=== PATIENT | male | born 1975 | race Caucasian/White ===

== ENCOUNTER 2020-05-30 12:11 | Outpatient (REF) | payer MEDICARE, MEDICAID, SELFPAY ==
[2020-05-30 13:42] LABS: Alanine Aminotransferase 28 U/L (0-40); Albumin Level 4.3 g/dL (3.5-5.0); Alkaline Phosphatase 110 U/L (39-117); Anion Gap 11 (12-20); Aspartate Amino Transferase 23 U/L (5-37); Bilirubin Total 0.3 mg/dL (0.0-1.0); Blood Urea Nitrogen 15 mg/dL (9-16); Carbon Dioxide 25 mmol/L (22-29); Chloride 107 mmol/L (96-108); Estimated Glomerular Filt Rate > 60; Glucose Random 93 mg/dL (60-115); Potassium 4.3 mmol/l (3.3-5.1); Sodium 139 mmol/L (135-145); Total Protein 7.2 g/dL (6.5-8.0)
[2020-05-31 07:50] LABS: HIV AB/AG Nonreactive (Nonreactive); HIV Num 1 0.07 S/CO (0.00-0.99)
== END 2020-05-30 12:12 | disposition home or self-care (01) ==
LOC: HO.LAB 12:11
PROVIDERS: Visit Provider Family Medicine
DX: E78.1 Pure hyperglyceridemia (principal); F17.200 Nicotine dependence, unspecified, uncomplicated; I10 Essential (primary) hypertension
CPT/HCPCS: 80053; 87389

== ENCOUNTER 2023-04-12 16:12 | Outpatient (REF) | payer OTHER, SELFPAY ==
[2023-04-12 17:55] LABS: Alanine Aminotransferase 16 U/L (0-40); Albumin Level 4.4 g/dL (3.5-5.0); Alkaline Phosphatase 108 U/L (39-117); Anion Gap 12 (12-20); Aspartate Amino Transferase 19 U/L (5-37); Bilirubin Total 0.4 mg/dL (0.0-1.0); Blood Urea Nitrogen 12 mg/dL (9-16); Calcium 9.4 mg/dL (8.4-10.2); Carbon Dioxide 21 mmol/L (22-29); Chloride 108 mmol/L (96-108); Estimated Glomerular Filt Rate > 60; Glucose Random 87 mg/dL (60-115); Potassium 4.1 mmol/L (3.3-5.1); Sodium 137 mmol/L (135-145); Total Protein 7.3 g/dL (6.5-8.0)
== END 2023-04-12 16:13 | disposition home or self-care (01) ==
LOC: HO.HHCL 16:12
PROVIDERS: Visit Provider Family Medicine
DX: I10 Essential (primary) hypertension (principal); E78.1 Pure hyperglyceridemia
CPT/HCPCS: 36415; 80053

== ENCOUNTER 2023-05-06 11:15 | Outpatient (REF) | payer OTHER, SELFPAY ==
[2023-05-06 13:25] LABS: MANUAL DIFF FLAG NO
[2023-05-06 13:33] LABS: Basophils Percent Auto 0.3 % (0-2); Eosinophils Percent Auto 0.1 % (0-4); Hematocrit 45.1 % (42.0-52.0); Hemoglobin 14.7 g/dl (14.0-18.0); Imm Gran Abs Auto 0.05 X10*3/uL (0.00-0.03); Imm Gran Pct Auto 0.6 % (0.0-0.4); Lymphocytes Absolute Auto 1.6 X10*3/uL (1.2-4.9); Lymphocytes Percent Auto 18.9 % (20-40); Mean Corpuscular HGB Conc 32.6 g/dl (31.0-36.0); Mean Corpuscular Hemoglobin 30.1 pg (27.0-33.0); Mean Corpuscular Volume 92.4 fL (80.0-98.0); Mean Platelet Volume 10.5 fL (9.4-12.4); Monocytes Absolute Auto 0.7 X10*3/uL (0.1-1.2); Monocytes Percent Auto 8.1 % (2-11); Neutrophils Absolute Auto 6.2 x10*3/uL (2.0-8.3); Platelet Count 295 X10*3/uL (160-400); Red Blood Count 4.88 X10*6/uL (4.60-5.80); Red Cell Distribution Width 14.9 % (11.0-16.0); White Blood Count 8.7 X10*3/uL (4.8-10.8)
[2023-05-06 14:16] LABS: TSH reflex Free T4 0.71 uIU/mL (0.32-4.0)
[2023-05-06 14:27] LABS: Anion Gap 15 (12-20)
[2023-05-06 14:31] LABS: Alanine Aminotransferase 13 U/L (0-40); Albumin Level 4.9 g/dL (3.5-5.0); Alkaline Phosphatase 120 U/L (39-117); Aspartate Amino Transferase 21 U/L (5-37); Bilirubin Total 0.5 mg/dL (0.0-1.0); Blood Urea Nitrogen 19 mg/dL (9-16); Calcium 10.5 mg/dL (8.4-10.2); Carbon Dioxide 21 mmol/L (22-29); Chloride 106 mmol/L (96-108); Estimated Glomerular Filt Rate > 60; Glucose Random 124 mg/dL (60-115); Potassium 4.2 mmol/L (3.3-5.1); Sodium 138 mmol/L (135-145); Total Protein 8.4 g/dL (6.5-8.0)
[2023-05-06 14:35] LABS: Cholesterol 219 mg/dL (<200); HDL Cholesterol 40 mg/dL (>40); LDL Cholesterol Calculated 133 mg/dL (<100); Triglycerides 232 mg/dL (<150)
[2023-05-06 14:50] LABS: Reflex LDLD? No
== END 2023-05-06 11:16 | disposition home or self-care (01) ==
LOC: HO.HHCL 11:15
PROVIDERS: Visit Provider Family Medicine
DX: I10 Essential (primary) hypertension (principal); E78.1 Pure hyperglyceridemia; G89.4 Chronic pain syndrome; Z72.0 Tobacco use
CPT/HCPCS: 36415; 80053; 80061; 84443; 85025

== ENCOUNTER 2023-05-18 19:00 | Outpatient (REF) | payer OTHER, SELFPAY ==
--- NOTE | ~2023-05-18 | MR_ITS ---
EXAMINATION: MR BRAIN WITHOUT CONTRAST CLINICAL INFORMATION: Headaches. Paresthesias and numbness. COMPARISON: None. TECHNIQUE: Multiplanar, multisequence imaging of the brain was performed without contrast. FINDINGS: No diffusion abnormalities are identified to suggest an acute or subacute infarct. The ventricles are normal in size. No mass effect or midline shift is seen. No brain parenchymal signal abnormality is noted. No extra-axial fluid collections are seen. The brainstem and cerebellum are normal. The gradient refocused acquisition is normal. The craniovertebral junction, marrow signal, and midline structures are normal. The major intracranial flow voids at the level of the kl[place] of [place] are preserved. The dural venous sinus flow voids are maintained. The paranasal sinuses are well aerated. There is trace fluid in the mastoid air cells. MR/MR head/brain wo con IMPRESSION: No acute process. Normal MRI of the brain.
== END 2023-05-18 19:01 | disposition home or self-care (01) ==
LOC: HO.MRI 19:00
PROVIDERS: Visit Provider Family Medicine
DX: M54.50 Low back pain, unspecified (principal); G89.29 Other chronic pain
CPT/HCPCS: 70551

== ENCOUNTER 2023-11-11 11:44 | Outpatient (REF) | payer OTHER, SELFPAY ==
[2023-11-11 13:47] LABS: Estimated Average Glucose 111 mg/dL; Hemoglobin A1c % 5.5 % (<6.0)
[2023-11-11 14:35] LABS: Alanine Aminotransferase 16 U/L (0-40); Albumin Level 4.8 g/dL (3.5-5.0); Alkaline Phosphatase 126 U/L (39-117); Anion Gap 12 (12-20); Aspartate Amino Transferase 25 U/L (5-37); Bilirubin Total 0.3 mg/dL (0.0-1.0); Blood Urea Nitrogen 17 mg/dL (9-16); Calcium 10.3 mg/dL (8.4-10.2); Carbon Dioxide 28 mmol/L (22-29); Chloride 105 mmol/L (96-108); Cholesterol 269 mg/dL (<200); Estimated Glomerular Filt Rate > 60; Glucose Random 92 mg/dL (60-115); HDL Cholesterol 46 mg/dL (>40); Potassium 4.7 mmol/L (3.3-5.1); Sodium 140 mmol/L (135-145); TSH reflex Free T4 1.31 uIU/mL (0.32-4.0); Total Protein 8.2 g/dL (6.5-8.0); Triglycerides 458 mg/dL (<150)
[2023-11-11 15:30] LABS: Reflex LDLD? Yes
[2023-11-12 07:53] LABS: LDL Cholesterol Direct 139 mg/dL (<100)
== END 2023-11-11 11:45 | disposition home or self-care (01) ==
LOC: HO.HHCL 11:44
PROVIDERS: Visit Provider Family Medicine
DX: E78.1 Pure hyperglyceridemia (principal); I10 Essential (primary) hypertension
CPT/HCPCS: 36415; 80053; 80061; 83036; 83721; 84443

== ENCOUNTER 2024-09-21 13:15 | Outpatient (REF) | payer OTHER, SELFPAY ==
[2024-09-21 15:16] LABS: Erythrocyte Sedimentation Rate 11 MM/HR (0-15)
--- OUTSIDE RECORDS SUMMARY | 2024-09-21 16:05 | XMS_ITS | Encounter Summary ---
Author Organization [employer] [facility] Address [address] [facility] 7t [place] [address] Care Team Providers Care Soliciting Freight Agent Name Role Phone Araceli De La Rosa MD Primary Care Provider [phone] Reason for Visit * Reason Onset Date Comments Med Refill 09/14/2022 Encounter Details Date Type Department Care Team (Late st Contact Info) Description 09/14/2022 Telephone [facility] [address] [place], [place] [phone] Araceli De La Rosa MD 230 [place], [place] [phone] Med Refill Social History Tobacco Use Types Packs/Day Years Used Date Smoking Tobacco: Every Day Cigarettes Passive Smoke Exposure: Never Smokeless Tobacco: Never Depression Answer Date Recorded Patient Health Questionnaire-9 Score 7 07/06/2022 Depression Answer Date Recorded Patient Health Questionnaire-2 Score 3 07/06/2022 Sex and Gender Information Value Date Recorded Sex Assigned at Male 05/18/2022 10:15 AM EDT Legal Sex Male 10:15 AM EDT Gender Identity Male 05/18/2022 10:15 AM EDT Sexual Orientation Straight 05/18/2022 10 :15 AM EDT documented as of this encounter Miscellaneous Notes * Telephone Encounter - Harpreet Haley - 09/14/2022 3:46 PM EST Tc from pt requesting med refill Oxycodone 5 mg documented in this encounter Plan of Treatment Upcoming Encounters Date Type Department Care Team (Late st Contact Info) Description 10/18/2024 11:00 AM EDT Clinical Support [facility] 505 [place] [address], RN 505 [place] [address] 11/13/2024 9:30 AM EDT Office Visit [facility] 230 [place] [address] Araceli De La Rosa MD 230 [place] [address] documented as of this encounter Visit Diagnoses Not on filedocumented in this encounter Additional Health Concerns Assessment Noted Time PHQ-9 Depression Total Score: 7 07/06/20 22 11:15 AM EST documented as of this encounter Care Teams Soliciting Freight Agent Relationship Specialty Start Date End Date Araceli De La Rosa MD [address] [place] [address] PCP - General Family Medicine 02/06/14 documented as of this encounter
--- OUTSIDE RECORDS SUMMARY | 2024-09-21 16:05 | XMS_ITS | Encounter Summary ---
Author Organization [employer] Address [address] [facility] 7t [place] [address] Care Team Providers Care Loom Setter Name Role Phone Araceli De La Rosa MD Primary Care Provider [phone] Encounter Details Date Type Department Care Team ([facility] st Contact Info) Description 05/03/2023 Orders Only [facility] 230 [place], [place] [phone] Araceli De La Rosa MD 230 [place], [place] [phone] Chronic bilateral low back pain without sciatica (Primary Dx); Chronic pain of both knees Social History Tobacco Use Types Packs/Day Years Used Date Smoking Tobacco: Every Day Cigarettes Passive Smoke Exposure: Never Smokeless Tobacco: Never Depression Answer Date Recorded Patient Health Questionnaire-9 Score 7 07/06/2022 Housing Stability Answer Date Recorded What is your housing situation today? I have kellenzuly duong 05/03/[address] you li ve. Do you have problems with any of the following? None of the above 05/03/2023 Food Insecurity Answer Date Recorded Within the past 12 months, y ou worried that your food would run out before you got money to buy more: Never True 05/03/2023 Within the past 12 months,th e food you bought just didn't last and you didn't have enough money to get more: Never True Transportation Answer Date Recorded In the past 12 months, has l ack of transportation kept you from medical appts, meetings, work or from getting things needed for daily living? No 05/03/2023 Utilities Answer Date Recorded In the past 12 months, has t he electric, gas, oil or water [employer] threatened to shut off services in your home? No 05/03/2023 Depression Answer Date Recorded Patient Health Questionnaire-2 Score 3 07/06/2022 Sex and Gender Information Value Date Recorded Sex Assigned at Male 05/18/2022 10:15 AM EDT Legal Sex Male 10:15 AM EDT Gender Identity Male 05/18/2022 10:15 AM EDT Sexual Orientation Straight 05/18/2022 10 :15 AM EDT documented as of this encounter Plan of Treatment Upcoming Encounters Date Type Department Care Team (Late st Contact Info) Description 10/18/2024 11:00 AM EDT Clinical Support [facility] 505 [place] [address], ILIA 505 [place] [address] 11/13/2024 9:30 AM EDT Office Visit [facility] 230 [place] [address] Araceli De La Rosa MD 230 [place] [address] documented as of this encounter Visit Diagnoses Diagnosis Chronic bilateral low back pain without sciatica- Primary Chronic pain of both knees documented in this encounter Additional Health Concerns Assessment Noted Time PHQ-9 Depression Total Score: 7 07/06/20 22 11:15 AM EST documented as of this encounter Care Teams Loom Setter Relationship Specialty Start Date End Date Araceli De La Rosa MD [address] [place] [address] PCP - General Family Medicine 02/06/14 documented as of this encounter
--- OUTSIDE RECORDS SUMMARY | 2024-09-21 16:06 | XMS_ITS | Encounter Summary ---
Author Organization [employer] Address [address] [facility] 7t [place] [address] Care Team Providers Care Blocker Metal Base Name Role Phone Araceli De La Rosa MD Primary Care Provider Reason for Visit * Reason Onset Date Comments Results 08/11/2023 Encounter Details Date Type Department Care Team ([facility] st Contact Info) Description 08/11/2023 Telephone [facility] 230 [place], [place] [phone] Araceli De La Rosa MD 230 [place], [place] [phone] Results Social History Tobacco Use Types Packs/Day Years Used Date Smoking Tobacco: Every Day Cigarettes Passive Smoke Exposure: Never Smokeless Tobacco: Never Depression Answer Date Recorded Patient Health Questionnaire-9 Score 7 07/06/2022 Housing Stability Answer Date Recorded What is your housing situation today? I have kellen duong 05/03/[address] you [...] t he electric, gas, oil or water [employer] threatened to shut off services in your [...] encounter Miscellaneous Notes * Telephone Encounter - Bowen Perez - 08/11/2023 10:22 AM EST TC from pt requesting call back regarding Results. Type of results: Lab Work & MRI Date when done: Lab 05/06, MRI 05/18 Facility: [facility] documented in this encounter Plan of Treatment Upcoming Encounters Date Type Department Care Team (Late st Contact Info) Description 10/18/2024 11:00 AM EDT Clinical Support [facility] 505 [place] [address], RN 505 [place] [address] 11/13/2024 9:30 AM EDT Office Visit [facility] 230 [place] [address] Araceli De La Rosa MD [address] [place] [address] documented as of this encounter Visit Diagnoses Not on filedocumented in this encounter Additional Health Concerns Assessment Noted Time PHQ-9 Depression Total Score: 7 07/06/20 22 11:15 AM EST documented as of this encounter Care Teams Blocker Metal Base Relationship Specialty Start Date End Date Araceli De La Rosa MD [address] [place] [address] PCP - General Family Medicine 02/06/14 documented as of this encounter
--- OUTSIDE RECORDS SUMMARY | 2024-09-21 16:06 | XMS_ITS | Encounter Summary ---
Author Organization [employer] Address [address] [facility] 7t [place] [address] Care Team Providers Care Sales And Service Specialist Name Role Phone Araceli De La Rosa MD Primary Care Provider [phone] Reason for Visit * Reason Comments Med Refill Encounter Details Date Type Department Care Team ([facility] st Contact Info) Description 06/08/[address] [facility] 230 [place], [place] [phone] Araceli De La Rosa MD 230 [place], [place] [phone] Muscle spasm Social History Tobacco Use Types Packs/Day Years Used Date Smoking Tobacco: Every Day Cigarettes Passive Smoke Exposure: Never Smokeless Tobacco: Never Depression Answer Date Recorded Patient Health Questionnaire-9 Score 10 11/11/2023 Patient Health Questionnaire-9 Score 10 11/11/2023 Last PHQ-9: Questionnaire Data Not on file 0 11/11/2023 Housing Stability Answer Date Recorded What is your housing situation today? I have kellen duong 11/11/[address] you li ve. Do you have problems with any of the following? None of the above 11/11/2023 Food Insecurity Answer Date Recorded Within the past 12 months, y ou worried that your food would run out before you got money to buy more: Never True 11/11/2023 Within the past 12 months,th e food you bought just didn't last and you didn't have enough money to get more: Never True Transportation Answer Date Recorded In the past 12 months, has l ack of transportation kept you from medical appts, meetings, work or from getting things needed for daily living? No 11/11/2023 Utilities Answer Date Recorded In the past 12 months, has t he electric, gas, oil or water company threatened to shut off services in your home? No 11/11/2023 Depression Answer Date Recorded Patient Health Questionnaire-2 Score 4 11/11/2023 Sex and Gender Information Value Date Recorded Sex Assigned at Male 05/18/2022 10:15 AM EDT Legal Sex Male 10:15 AM EDT Gender Identity Male 05/18/2022 10:15 AM EDT Sexual Orientation Straight 05/18/2022 10 :15 AM EDT documented as of this encounter Plan of Treatment Upcoming Encounters Date Type Department Care Team (Late st Contact Info) Description 10/18/2024 11:00 AM EDT Clinical Support [facility] MED & PEDS 505 [place] [address], RN 505 [place] [address] 11/13/2024 9:30 AM EDT Office Visit [facility] 230 [place] [address] Araceli De La Rosa MD 230 [place] [address] documented as of this encounter Visit Diagnoses Diagnosis Muscle spasm Spasm of muscle documented in this encounter Additional Health Concerns Assessment Noted Time PHQ-9 Depression Total Score: 10 024 10:31 AM EDT documented as of this encounter Care Teams Sales And Service Specialist Relationship Specialty Start Date End Date Araceli De La Rosa MD 230 [place] [address] PCP - General Family Medicine 02/06/14 documented as of this encounter
--- OUTSIDE RECORDS SUMMARY | 2024-09-21 16:06 | XMS_ITS ---
Author Organization [facility] Address [address] [place] [phone] Care Team Providers Care Commercial Underwriter Name Role Phone Estrella CULLEN, Araceli Primary Care Provider Rom Kim [phone] REASON FOR VISIT Patient presents today for a COLON SCREENING Encounters Encounter Location Date Provider Diagnosis [facility] [address] [place] [phone] 01/11/2024 Rom Rader Plan Of Treatment No Information Progress Notes * DOYLE RODASDOB:1975 ([age] yo M)Acc No.[id number]:01/11/2024 Progress Notes Patient:?DOYLE RODAS Provider:?Rom Rader MD :1975???Age:48 Y???Sex:Male Michael e:01/11/2024 Address:[address] [place], [place] [id number] Pcp:Araceli De La Rosa MD Subjective: * Chief Complaints: * ???1. Patient presents today for a COLON SCREENING. * Medical History:? Objective: * Vitals:? Assessment: Plan: * Treatment: * * The named appointment provid er may or may not be the originator of this progress note, and it is not deemed complete until electronically signed by the appointment provider. Sign off status: Pending * Provider:?Rom Rader MD Date:? 024 Generated for Jaime rowell/Violeta/Kristophersmitting on:?09/21/2024 04:05 PM EST
--- OUTSIDE RECORDS SUMMARY | 2024-09-21 16:06 | XMS_ITS | Encounter Summary ---
Author Organization [employer] Address [address] [facility] 7t [place] [address] Care Team Providers Care Peeled Potato Inspector Name Role Phone Araceli De La Rosa MD Primary Care Provider [phone] Reason for Visit * Reason Onset Date Comments Med Refill 09/15/2024 Encounter Details Date Type Department Care Team ([facility] st Contact Info) Description 09/15/2024 Refill [facility]S 505 [place], [place] [phone] [address], RN 505 [place] [address] Chronic bilateral low back pain without sciatica (Primary Dx); Chronic pain syndrome; Chronic foot pain, unspecified laterality Social History Tobacco Use Types Packs/Day Years Used Date Smoking Tobacco: Every Day Cigarettes Passive Smoke Exposure: Never Smokeless Tobacco: Never Alcohol Use Standard Drinks/Week Comments Never 0 (1 standard drink = 0.6 oz pur e alcohol) Depression Answer Date Recorded Patient Health Questionnaire-9 Score 14 08/10/2024 Patient Health Questionnaire-9 Score 14 08/10/2024 Last PHQ-9: Questionnaire Data Not on file 0 08/10/2024 Housing Stability Answer Date Recorded What is your housing situation today? I have kellen ad 11/11/[address] you li [...] Answer Date Recorded Patient Health Questionnaire-2 Score 6 08/10/2024 Sex and Gender Information Value Date Recorded Sex Assigned at Male 05/18/2022 10:15 AM EDT Legal Sex Male 10:15 AM EDT Gender Identity Male 05/18/2022 10:15 AM EDT Sexual Orientation Straight 05/18/2022 10 :15 AM EDT documented as of this encounter Plan of Treatment Upcoming Encounters Date Type Department Care Team (Late st Contact Info) Description 10/18/2024 11:00 AM EDT Clinical Support [facility] 505 [place] [address], RN 505 [place] [address] 11/13/2024 9:30 AM EDT Office Visit [facility] [address] [place] [address] Araceli De La Rosa MD [address] [place] [address] documented as of this encounter Visit Diagnoses Diagnosis Chronic bilateral low back pain without sciatica- Primary Chronic pain syndrome Chronic foot pain, unspecified laterality documented in this encounter Additional Health Concerns Assessment Noted Time PHQ-9 Depression Total Score: 14 025 2:09 PM EST documented as of this encounter Care Teams Peeled Potato Inspector Relationship Specialty Start Date End Date Araceli De La Rosa MD [address] [place] [address] PCP - General Family Medicine 02/06/14 documented as of this encounter
--- OUTSIDE RECORDS SUMMARY | 2024-09-21 16:06 | XMS_ITS | Encounter Summary ---
Author Organization [employer] Address [address] [facility] 7t [place] [address] Care Team Providers Care Bilingual Loan Processor Name Role Phone Araceli De La Rosa MD Primary Care Provider Reason for Visit * Reason Onset Date Comments Med Refill 09/15/2024 Encounter Details Date Type Department Care Team ([facility] st Contact Info) Description 09/15/2024 Refill [facility] 230 [place], [place] [phone] Araceli De La Rosa MD 230 [place], [place] [phone] Insomnia, unspecified type Social History Tobacco Use Types Packs/Day Years [...] encounter Miscellaneous Notes * Telephone Encounter - Gayathri Keith LPN - 09/15/2024 1:46 PM EST ACCOUNTS PAYABLE PROFESSIONAL checked on 09/15/24. Next appointment 11/13/24. * Telephone Encounter - Ortiz Gao - 09/15/2024 1:42 PM EST TC from pt requesting medication refill. Medications needing refill : zolpidem (Ambien) 5 MG tablet To be sent to: [id number] - [place], [place] - [address] [place] [address] AT [facility] documented in this encounter Plan of Treatment Upcoming Encounters Date Type Department Care Team (Late st Contact Info) Description 10/18/2024 11:00 AM EDT Clinical Support [facility] 505 [place] [address] RN 505 [place] [address] 11/13/2024 9:30 AM EDT Office Visit [facility] 230 [place] [address] Araceli De La Rosa MD 230 [place] [address] documented as of this encounter Visit Diagnoses Diagnosis Insomnia, unspecified type documented in this encounter Additional Health Concerns Assessment Noted Time PHQ-9 Depression Total Score: 14 025 2:09 PM EST documented as of this encounter Care Teams Bilingual Loan Processor Relationship Specialty Start Date End Date Araceli De La Rosa MD 230 [place] [address] PCP - General Family Medicine 02/06/14 documented as of this encounter
--- OUTSIDE RECORDS SUMMARY | 2024-09-21 16:06 | XMS_ITS | Encounter Summary ---
Author Organization [employer] Address [address] [facility] 7t [place] [address] Care Team Providers Care Hat Forming Machine Operator Name Role Phone Araceli De La Rosa MD Primary Care Provider [phone] Encounter Details Date Type Department Care Team (Latest Contact Info) Description 09/10/2024 Travel Social History Tobacco Use Types Packs/Day Years [...] Description 10/18/2024 11:00 AM EDT Clinical Support [facility] 505 [place] [address], RN 505 [place] [address] 11/13/2024 9:30 AM EDT Office Visit [facility] 230 [place] [address] Araceli De La Rosa MD 230 [place] [address] documented as of this encounter Visit Diagnoses Not on filedocumented in this encounter Additional Health Concerns Assessment Noted Time PHQ-9 Depression Total Score: 14 025 2:09 PM EST documented as of this encounter Care Teams Hat Forming Machine Operator Relationship Specialty Start Date End Date Araceli De La Rosa MD [address] [place] [address] PCP - General Family Medicine 02/06/14 documented as of this encounter
--- OUTSIDE RECORDS SUMMARY | 2024-09-21 16:06 | XMS_ITS | Encounter Summary ---
Author Organization [employer] Address [address] [facility] 7t [place] [address] Care Team Providers Care Button Attaching Machine Operator Name Role Phone Araceli De La Rosa MD Primary Care Provider [phone] Reason for Visit * Reason Onset Date Comments Referral 09/12/2024 Encounter Details Date Type Department Care Team ([facility] st Contact Info) Description 09/12/2024 Telephone [facility] 230 [place], [place] [phone] Araceli De La Rosa MD 230 [place], [place] [phone] Referral Social History Tobacco Use Types Packs/Day Years [...] encounter Miscellaneous Notes * Telephone Encounter - Araceli De La Rosa MD - 09/18/2024 6:15 PM EST Referral sent * Telephone Encounter - Alexandrea Faith RN - 09/15/2024 9:43 AM EST Called Hina, pt's daycare teacher. She stated that the pt does not remember previous chiropractorname but that new referral made does not take [facility]. She states that she did some research for the ptand he is asking for referral to below location which does take [facility]. [facility] [address] [place] [address] [address] [place] [address] Advised will send message to PCP to update referral. Hina verbalized understanding. * Telephone Encounter - Alexandrea Faith RN - 09/13/2024 9:32 AM EST Per provider request, called pt's daycare teacher Hina. Left voicemail asking for callback. * Telephone Encounter - Alexandrea Faith RN - 09/12/2024 3:43 PM EST Nurses received message from pt's Group Tester Hina below asking about new chiropractor referral. Will message PCP regarding referral request. -- Greetings, I am Hina Quick, Blintze Roller for [facility] [employer], and would like to submit a request for a referral on behalf of the patient. Reason: Referral to a chiropractor to treat member's existing severe back pain. Gerard reports he wasreferred to a provider in [place] previously and did not like the way he was treated. Gerard would like a referral to a different provider If you should have any inquiries regarding this request, feel free to contact the Blintze Roller below. Blintze Roller: Hina Quick E-mail: [email or web address] Dish Cloth Inspector: Gillian Cervantes E-mail: [email or web address] Thanks in advance for your assistance with this request. Sincerely, [facility] [employer] documented in this encounter Plan of Treatment Upcoming Encounters Date Type Department Care Team (Late st Contact Info) Description 10/18/2024 11:00 AM EDT Clinical Support [facility] 505 [place] [address], [place] 505 [place] [address] 11/13/2024 9:30 AM EDT Office Visit [facility] 230 [place] [address] Araceli De La Rosa MD 230 [place] [address] documented as of this encounter Visit Diagnoses Not on filedocumented in this encounter Additional Health Concerns Assessment Noted Time PHQ-9 Depression Total Score: 14 025 2:09 PM EST documented as of this encounter Care Teams Button Attaching Machine Operator Relationship Specialty Start Date End Date Araceli De La Rosa MD [address] [place] [address] PCP - General Family Medicine 02/06/14 documented as of this encounter
--- OUTSIDE RECORDS SUMMARY | 2024-09-21 16:06 | XMS_ITS | Encounter Summary ---
Author Organization [employer] Address [address] [facility] 7t [place] [address] Care Team Providers Care Supervisor Water Treatment Plant Name Role Phone Araceli De La Rosa MD Primary Care Provider [phone] Reason for Visit * Reason Onset Date Comments Med Refill 09/15/2024 Encounter Details Date Type Department Care Team ([facility] st Contact Info) Description 09/15/2024 Telephone [facility] 230 [place], [place] [phone] Araceli De La Rosa MD 230 [place], [place] [phone] Med Refill Social History Tobacco Use Types [...] encounter Miscellaneous Notes * Telephone Encounter - Ortiz Murray - 09/15/2024 1:42 PM EST TC from pt requesting medication refill. Medications needing refill : oxyCODONE-acetaminophen (Percocet) 5-325 MG tablet To be sent to: [id number] - [place], [place] - [address] [facility] AT [facility] documented in this encounter Plan of Treatment Upcoming Encounters Date Type Department Care Team (Late st Contact Info) Description 10/18/2024 11:00 AM EDT Clinical Support [facility] 505 [place] [address], [place] 505 [place] [address] 11/13/2024 9:30 AM EDT Office Visit [facility] 230 [place] [address] Araceli De La Rosa MD 230 [place] [address] documented as of this encounter Visit Diagnoses Not on filedocumented in this encounter Additional Health Concerns Assessment Noted Time PHQ-9 Depression Total Score: 14 025 2:09 PM EST documented as of this encounter Care Teams Supervisor Water Treatment Plant Relationship Specialty Start Date End Date Araceli De La Rosa MD 230 [place] [address] PCP - General Family Medicine 02/06/14 documented as of this encounter
--- OUTSIDE RECORDS SUMMARY | 2024-09-21 16:06 | XMS_ITS | Patient Health Record ---
Author Organization [facility] Address [address] [place] [id number] Care Team Providers Care Management Trainee Program Stores Name Role Phone Estrella CULLEN, Araceli Primary Care Provider Rom Kim [phone] Reason For Referral No Information Encounters Encounter Location Date Provider Diagnosis [facility] [address] [place] [id number] 01/11/2024 Rom Rader Plan Of Treatment No Information Insurance Providers Payer Name Payer Address Payer Phone Subscriber Number Group Number Insured Name Patient Relationship to Insured Coverage Start Date Coverage End Date [facility] [address] [place] [address] [id number] DOYLE RODAS Self - patient is the insured
--- OUTSIDE RECORDS SUMMARY | 2024-09-21 16:06 | XMS_ITS | Encounter Summary ---
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 Medications needing refill : oxyCODONE-acetaminophen (Percocet) 5-325 MG tablet To be sent to: [id number] - [place], [place] - [address] [place] [address] AT [facility] documented in this encounter Plan of Treatment Upcoming Encounters Date Type Department Care Team (Late st Contact Info) Description 10/18/2024 11:00 AM EDT Clinical Support [facility] MED & PEDS [address] [place] [address], RN [address] [place] [address] 11/13/2024 9:30 AM EDT Office Visit [facility] MEDICINE [address] [place] [address] Araceli De La Rosa MD [address] [place] [phone] documented as of this encounter Visit Diagnoses Not on filedocumented in this encounter Additional Health Concerns Assessment Noted Time PHQ-9 Depression Total Score: 10 024 10:31 AM EDT documented as of this encounter Care Teams Fleshing Machine Operator Relationship Specialty Start Date End Date Araceli De La Rosa MD [address] [place] [address] PCP - General Family Medicine 02/06/14 documented as of this encounter
--- OUTSIDE RECORDS SUMMARY | 2024-09-21 16:06 | XMS_ITS | Clinical Summary ---
Author Organization [facility] Address [address] [facility] [address] [place] [address] Care Team Providers Care Rotary Engine Assembler Name Role Phone Araceli De La Rosa MD Primary Care Provider [phone] Allergies Active Allergy Reactions Criticality Noted Date Comments Morphine Anaphylaxis High 06/26/2013 Medications * This document contains information received from the source organization and may not represent a complete record from that organization. naloxone (Narcan) 4 mg/0.1 mL nasal spray Administer 0.1 mL into affected nostril(s). 04/30/20 22 Active Blood Pressure Monitor kit Check blood pressure once daily and as needed 1 kit 04/12/20 23 Active escitalopram (Lexapro) 5 MG tablet Take 1 tablet (5 mg) by mouth Once per day. 90 tablet 3 11/11/19 24 Active lisinopril 5 MG tabletIndicatio ns:Primary hypertension TAKE 1 TABLET(5 MG) BY MOUTH IN THE MORNING 90 tablet 3 11/11/19 24 Active atorvastatin (Lipitor) 20 MG tabletIndicatio ns:Hypertriglyc eridemia TAKE 1 TABLET(20 MG) BY MOUTH IN THE MORNING 90 tablet 3 11/11/19 24 Active hydrOXYzine pamoate (Vistaril) 25 MG capsule TAKE 1 CAPSULE(25 MG) BY MOUTH EVERY 8 HOURS NEEDED FOR ANXIETY 90 capsule 01/12/20 24 Active tiZANidine (Zanaflex) 4 MG tabletIndicatio ns:Muscle spasm TAKE 1 TABLET BY MOUTH THREE TIMES DAILY NEEDED FOR MUSCLE SPASM. NOT TO EXCEED 3 DOSES IN 24 HOURS 60 tablet 1 08/08/19 25 Active zolpidem (Ambien) 5 MG tabletIndicatio ns:Insomnia, unspecified type TAKE 1 TABLET BY MOUTH AT BEDTIME NEEDED FOR SLEEP 14 tablet 09/17/19 25 Active oxyCODONE-aceta minophen (Percocet) 5-325 MG tabletIndicatio ns:Chronic bilateral low back pain without sciatica,Chroni c pain syndrome,Chroni c foot pain, unspecified laterality Take 1 tablet by mouth every 12 (twelve) hours if needed for severe pain for up to 28 days. 56 tablet 09/17/19 25 025 Active zolpidem (Ambien) 5 MG tabletIndicatio ns:Insomnia, unspecified type TAKE 1 TABLET BY MOUTH AT BEDTIME NEEDED FOR SLEEP 14 tablet 08/04/19 25 025 Discontinued(R eorder (will not trigger notification to Pharmacy)) oxyCODONE-aceta minophen (Percocet) 5-325 MG tabletIndicatio ns:Chronic pain of both knees,Chronic pain syndrome,Chroni c bilateral low back pain without sciatica Take 1 tablet by mouth every 12 (twelve) hours if needed for severe pain for up to 28 days. 56 tablet 08/04/19 25 025 Active Problems Problem Noted Date Diagnosed Date Long-term current use of opiate analgesic 2024 Chronic headache 07/21/2024 Assessment & Plan (07/21/2024 5:34 PM EST): - multifactorial (JOSHUA, sinus disease, chronic pain syndrome) - normal MRI in Apr 2023 - optimize treatment for other chronic disease - work on smoking cessation - improve sleep - consider judicious use of THC / CBD - refer to neurology Chronic foot pain 06/01/2024 Assessment & Plan (07/21/2024 5:36 PM EST): - patient requests a script for DME, which was advised by patient's [facility] sub acute care nurse or coordinator - will write a script as requested, [employer] [place] [employer] Shoes, Size 8 Plantar fasciitis 06/01/2024 Assessment & Plan (07/17/2024 1:55 PM EST): - Pt is seeking insurance approval for shoes that help to alleviate some of his foot pain. - Refer him to a specialist for plantar fasciitis as previous visits were reported to be unsatisfactory. Depression, unspecified 11/08/2023 Anisocoria 04/19/2023 Assessment & Plan (07/21/2024 5:38 PM EST): - pt reports Hx head trauma - given his paresthesia and hyperalgesia. - MRI head was remarkably normal Assessment & Plan (11/11/2023 1:01 PM EDT): - pt reports Hx head trauma - given his paresthesia and hyperalgesia. - MRI head was remarkably normal Assessment & Plan (08/16/2023 9:14 AM EST): - pt reports Hx head trauma - given his paresthesia and hyperalgesia. - MRI head was remarkably normal Assessment & Plan (04/19/2023 6:07 AM EDT): - pt reports Hx head trauma - given his paresthesia and hyperalgesia. Will evaluate with MRI. Mixed dyslipidemia 04/19/2023 Assessment & Plan (07/21/2024 5:37 PM EST): Lipid Profile: 07/06/22 TC 350; HDL 46; TG 991; LDL could not calculate 05/03/23 total cholesterol 219; triglyceride 232; LDL 133; HDL 40 Current medication: Atorvastatin 20 mg at bedtime, improve adherence Continue working on lifestyle modifications Assessment & Plan (11/11/2023 1:01 PM EDT): Lipid Profile: 07/06/22 TC 350; HDL 46; TG 991; LDL could not calculate 05/03/23 total cholesterol 219; triglyceride 232; LDL 133; HDL 40 Current medication: Atorvastatin 20 mg at bedtime Continue working on lifestyle modifications Assessment & Plan (08/16/2023 9:18 AM EST): Lipid Profile: 07/06/22 TC 350; HDL 46; TG 991; LDL could not calculate 05/03/23 total cholesterol 219; triglyceride 232; LDL 133; HDL 40 Current medication: Atorvastatin 20 mg at bedtime Continue working on lifestyle modifications Assessment & Plan (04/19/2023 6:12 AM EDT): Last Lipid Profile: 07/06/22 TC 350; HDL 46; TG 991; LDL could not calculate Current medication: Atorvastatin 20 mg at bedtime Continue working on lifestyle modifications Overweight 07/07/2022 Assessment & Plan (11/11/2023 12:56 PM EDT): - his weight changes rapidly and frequently; possibly due to his stress level / tobacco use / bipolar - continue working on lifestyle modification Assessment & Plan (04/19/2023 5:56 AM EDT): - his weight changes rapidly and frequently; possibly due to his stress level / tobacco use / bipolar - continue working on lifestyle modification Chronic pain syndrome 07/06/2022 Assessment & Plan (07/17/2024 1:57 PM EST): -Patient has been evaluated by PT, chiropracter, roof cement and paint maker, tape editor, orthopedist, neurologist, and neurosurgeon -Patient was tapering down opioid analgesic, and taking almost one tablet per day. However, the pain has worsened and now back to bid. -Received SIJ injection on 01/23/22 and LESI on 04/21/22 by pain management providers in [facility] -Patient was re-evaluated again by [facility] provider back specialist in May and Jun 2023. Discussed about treatment options, and was recommended to see ankle and foot specialists for calves and hamstrings tightness. -Patient needs a multidisciplinary approach. Will explore more about PMH and past functional level. -Patient started seeing integrated behavioral health service, and was referred to outside behavioral health service provider. - Patient is interested [facility] in [place] or [place]; will look into specialists. Assessment & Plan (11/12/2023 12:43 PM EDT): -Patient has been evaluated by PT, chiropracter, roof cement and paint maker, tape editor, orthopedist, neurologist, and neurosurgeon -Patient was tapering down opioid analgesic, and taking almost one tablet per day. However, the pain has worsened and now back to bid. -Received SIJ injection on 01/23/22 and LESI on 04/21/22 by pain management providers in [facility] -Patient was re-evaluated again by [facility] provider back specialist in May and Jun 2023. Discussed about treatment options, and was recommended to see ankle and foot specialists for calves and hamstrings tightness. -Patient needs a multidisciplinary approach. Will explore more about PMH and past functional level. -Patient started seeing integrated behavioral health service, and was referred to outside behavioral health service provider. - Patient is interested in being referred to [facility] / [facility] in [place] or [place]; will look into specialists. Assessment & Plan (08/16/2023 9:11 AM EST): -Patient has been evaluated by PT, chiropracter, roof cement and paint maker, tape editor, orthopedist, neurologist, and neurosurgeon -Patient was tapering down opioid analgesic, and taking almost one tablet per day. However, the pain has worsened and now back to bid. -Received SIJ injection on 01/23/22 and LESI on 04/21/22 by pain management providers in [facility] -Patient was re-evaluated again by [facility] provider back specialist in May and Jun 2023. Discussed about treatment options, and was recommended to see ankle and foot specialists for calves and hamstrings tightness. -Patient needs a multidisciplinary approach. Will explore more about PMH and past functional level. -Patient seems to benefit from behavioral health service; patient is hesitant. Assessment & Plan (04/12/2023 4:34 PM EDT): -Patient has been evaluated by PT, chiropracter, roof cement and paint maker, tape editor, orthopedist, neurologist, and neurosurgeon -Patient was tapering down opioid analgesic, and taking almost one tablet per day. Recently pain is worsening, likely due to weather, per pt. -Received SIJ injection on 01/23/22 and LESI on 04/21/22 by pain management providers in [facility] -Will schedule in-person appt to review the goal of pain management and HOT PUNCH PRESS OPERATOR agreement -Pt has not been keeping appt with specialists, completing lab as requested. Assessment & Plan (07/06/2022 5:18 AM EST): -Patient has been evaluated by PT, chiropracter, roof cement and paint maker, tape editor, orthopedist, neurologist, and neurosurgeon -Patient was tapering down opioid analgesic, and taking almost one tablet per day. Recently pain is worsening, likely due to weather, per pt. -Received SIJ injection on 01/23/22 and LESI on 04/21/22 by pain management providers in [facility] -Will schedule in-person appt to review the goal of pain management and HOT PUNCH PRESS OPERATOR agreement -Pt has not been keeping appt with specialists, completing lab as requested. Tobacco use 07/06/2022 Assessment & Plan (07/17/2024 1:56 PM EST): - Smoking cessation is encouraged in order to help with his high blood pressure. Assessment & Plan (11/11/2023 1:00 PM EDT): - continue working on smoking cessation Assessment & Plan (08/16/2023 9:19 AM EST): - continue working on smoking cessation Assessment & Plan (04/19/2023 6:10 AM EDT): - continue working on smoking cessation Primary hypertension 07/06/2022 Assessment & Plan (07/21/2024 5:34 PM EST): Goal BP < 140/90 per JNC-8, < 130/80 per ACC/AHA (Tx threshold 140/90) -BP not at goal -continue lisinopril 5 mg daily, improve adherence -discussed about the importance for Tx for JOSHUA -Work on lifestyle modification Assessment & Plan (11/12/2023 12:43 PM EDT): Goal BP < 140/90 per JNC-8, < 130/80 per ACC/AHA (Tx threshold 140/90) -BP not at goal -continue lisinopril 5 mg daily -discussed about the importance for Tx for JOSHUA -Work on lifestyle modification Assessment & Plan (08/16/2023 9:12 AM EST): Goal BP < 140/90 per JNC-8, < 130/80 per ACC/AHA (Tx threshold 140/90) -continue lisinopril 5 mg daily -discussed about the importance for Tx for JOSHUA -Work on lifestyle modification -f/u in 3-6mo Assessment & Plan (04/12/2023 4:43 PM EDT): Goal BP < 140/90 per JNC-8, < 130/80 per ACC/AHA (Tx threshold 140/90) -continue lisinopril 5 mg daily -discussed about the importance for Tx for JOSHUA -Work on lifestyle modification -f/u in 3-6mo Assessment & Plan (07/07/2022 11:23 AM EST): Goal BP < 140/90 per JNC-8, < 130/80 per ACC/AHA (Tx threshold 140/90) Restart lisinopril 5 mg daily Work on lifestyle modification Refer to sleep medicine clinic for JOSHUA tx Chronic sinusitis 02/17/2018 Hypertriglyceridemia 08/18/2016 Assessment & Plan (11/11/2023 1:00 PM EDT): Last Lipid Profile: 05/06/23 Current medication: Atorvastatin 20 mg at bedtime Continue working on lifestyle modifications Assessment & Plan (08/16/2023 9:16 AM EST): Last Lipid Profile: 07/06/22 TC 350; HDL 46; TG 991; LDL could not calculate Current medication: Atorvastatin 20 mg at bedtime Continue working on lifestyle modifications Assessment & Plan (04/19/2023 6:10 AM EDT): Last Lipid Profile: 07/06/22 TC 350; HDL 46; TG 991; LDL could not calculate Current medication: Atorvastatin 20 mg at bedtime Continue working on lifestyle modifications Assessment & Plan (07/07/2022 11:17 AM EST): 03/01/21 TC 268; TG 537; HDL 35; LDL test not performed pt tried fish oil but discontinued According to 2013 ACC/AHA guideline, 10-year ASCVD risk is 13 % and moderate to high-intensity statin therapy is recommended. Chronic pain of both knees 05/21/2015 Assessment & Plan (11/12/2023 12:44 PM EDT): -Rx knee braces Assessment & Plan (04/12/2023 4:34 PM EDT): Pt requests a new Knee Brace. Pt has knee instability and the Knee Braces helps his Knees. -Rx knee braces Recurrent major depression 05/21/2015 Assessment & Plan (08/14/2024 10:14 AM EST): During IBH Consult Gerard presenting with depressed mood, Tearful, crying spells , hopelessness, irritable mood, loss of interests/pleasure , sense of isolation/loneliness , isolating, changes in sleep difficulty falling asleep and difficulty staying asleep , fatigue/loss of energy, worthlessness, inappropriate/excessive guilt , difficulty concentrating, indecisiveness; for a period of 18+ mo, for most or all symptoms in the context of illness or family illness. Gerard presented with severe depression due to his medical condition which is identified as main trigger for sxs. Gerard experiences chronic pain in the every day basis. His is identified as main strength and support. Pt was connected with support groups for anger management in the past. Lack of engagement later on due to not feeling understood by mental health providers. clinician engaged patient with active/reflective listening. Reviewed and assessed for risk, current stressors and protective factors using open-ended questions. Pt declined OP referral and would follow-up with clinician to get additional support. [facility] information provided and crisis number. Provided education to patient regarding importance of engaging in services and seeking out for help. Assessment & Plan (07/21/2024 5:38 PM EST): Hx psychiatric hospitalization for MDD; he was prescribed olanzapine, but self-discontinued. Question of [place] II per discharge summary - recently seen by clinician and has follow-up appointment tomorrow, patient would like to try anti-depressants - started escitroplam 5 mg daily and hydroxzine 25 mg Q8H prn in October 2023, improve adherence Assessment & Plan (11/11/2023 12:59 PM EDT): Hx psychiatric hospitalization for MDD; he was prescribed olanzapine, but self-discontinued. Question of [place] II per discharge summary - recently seen by clinician and has follow-up appointment tomorrow, patient would like to try anti-depressants - start escitroplam 5 mg daily and hydroxzine 25 mg Q8H prn Assessment & Plan (07/07/2022 11:22 AM EST): Hx psychiatric hospitalization for MDD; he was prescribed olanzapine, but self-discontinued. Question of [place] II per discharge summary [facility] ([facility]) Continuous opioid dependence 10/09/2014 Assessment & Plan (07/21/2024 5:38 PM EST): -Judicious use of opioid analgesic -Narcan has been prescribed -HOT PUNCH PRESS OPERATOR agreement is up to date -pt was tapering down Percocet by himself, taking q24h in September 2020, then down to q18h, but, increased to q12h again in Jun 2022 Assessment & Plan (11/12/2023 12:47 PM EDT): -Judicious use of opioid analgesic -Narcan has been prescribed -HOT PUNCH PRESS OPERATOR agreement is up to date -pt was tapering down Percocet by himself, taking q24h in September 2020, then down to q18h, but, increased to q12h again in Jun 2022 Assessment & Plan (04/19/2023 6:09 AM EDT): -Judicious use of opioid analgesic -Narcan has been prescribed -HOT PUNCH PRESS OPERATOR agreement is up to date -pt was tapering down Percocet by himself, taking q24h in September 2020, then down to q18h, but, increased to q12h again in Jun 2022 Assessment & Plan (07/07/2022 11:27 AM EST): -Judicious use of opioid analgesic -Narcan has been prescribed -HOT PUNCH PRESS OPERATOR agreement is up to date -pt was tapering down Percocet by himself, taking q24h in September 2020 -pt is now stating that current Percocet dosing q18h is inadequate -agreed to increase to q12h for severe pain so that he can become more physically active Gastroesophageal reflux disease 06/26/2013 Chronic bilateral low back pain without sciatica 06/26/2013 Assessment & Plan (07/21/2024 5:38 PM EST): -Patient is previously followed by roof cement and paint maker, tape editor, orthopedist and neurologist -Patient had been tapering down opioid analgesic, taking almost one tablet per day. Recently pt is having more pain and perceives that current dosing is inadequate -pt completed 8 sessions of PT without much improvement -MRI on 07/23/21 showed moderate to severe b/l foraminal stenosis with mass effect on the exiting L5 nerve roots b/l at L5-S1 level, multifactorial degenerative changes result in stable mild to moderate b/l foraminal stenosis at L4-L5 -Neurosurgeon's impression was fibromyalgia and SI joint arthritis as the cause of his pain. -Pt was recommended by pain management to try SI joint injection -second opinion by another neurosurgeon was the same -seen by [facility] provider, most recently in Jun 2023. Conservative management at this time -looking for another specialist to evaluate him Assessment & Plan (11/12/2023 12:48 PM EDT): -Patient is previously followed by roof cement and paint maker, tape editor, orthopedist and neurologist -Patient had been tapering down opioid analgesic, taking almost one tablet per day. Recently pt is having more pain and perceives that current dosing is inadequate -pt completed 8 sessions of PT without much improvement -MRI on 07/23/21 showed moderate to severe b/l foraminal stenosis with mass effect on the exiting L5 nerve roots b/l at L5-S1 level, multifactorial degenerative changes result in stable mild to moderate b/l foraminal stenosis at L4-L5 -Neurosurgeon's impression was fibromyalgia and SI joint arthritis as the cause of his pain. -Pt was recommended by pain management to try SI joint injection -second opinion by another neurosurgeon was the same -seen by [facility] provider, most recently in Jun 2023. Conservative management at this time -looking for another specialist to evaluate him Assessment & Plan (08/16/2023 9:16 AM EST): -Patient is previously followed by roof cement and paint maker, tape editor, orthopedist and neurologist -Patient had been tapering down opioid analgesic, taking almost one tablet per day. Recently pt is having more pain and perceives that current dosing is inadequate -pt completed 8 sessions of PT without much improvement -MRI on 07/23/21 showed moderate to severe b/l foraminal stenosis with mass effect on the exiting L5 nerve roots b/l at L5-S1 level, multifactorial degenerative changes result in stable mild to moderate b/l foraminal stenosis at L4-L5 -Neurosurgeon's impression was fibromyalgia and SI joint arthritis as the cause of his pain. -Pt was recommended by pain management to try SI joint injection -second opinion by another neurosurgeon was the same -seen by [facility] provider, most recently in Jun 2023. Conservative management at this time Assessment & Plan (04/12/2023 4:44 PM EDT): Patient requested another referral -Patient is previously followed by roof cement and paint maker, tape editor, orthopedist and neurologist -Patient had been tapering down opioid analgesic, taking almost one tablet per day. Recently pt is having more pain and perceives that current dosing is inadequate -pt completed 8 sessions of PT without much improvement -MRI on 07/23/21 showed moderate to severe b/l foraminal stenosis with mass effect on the exiting L5 nerve roots b/l at L5-S1 level, multifactorial degenerative changes result in stable mild to moderate b/l foraminal stenosis at L4-L5 -Neurosurgeon's impression was fibromyalgia and SI joint arthritis as the cause of his pain. -Pt was recommended by pain management to try SI joint injection -second opinion by another neurosurgeon was the same -pt is now receiving hip and back injection, will obtain records from specialist -pt states he was advised to have MRI of brain, MRI of brain was ordered, but pt has not completed it yet Assessment & Plan (07/06/2022 5:19 AM EST): -Patient is previously followed by roof cement and paint maker, tape editor, orthopedist and neurologist -Patient had been tapering down opioid analgesic, taking almost one tablet per day. Recently pt is having more pain and perceives that current dosing is inadequate -pt completed 8 sessions of PT without much improvement -MRI on 07/23/21 showed moderate to severe b/l foraminal stenosis with mass effect on the exiting L5 nerve roots b/l at L5-S1 level, multifactorial degenerative changes result in stable mild to moderate b/l foraminal stenosis at L4-L5 -Neurosurgeon's impression was fibromyalgia and SI joint arthritis as the cause of his pain. -Pt was recommended by pain management to try SI joint injection -second opinion by another neurosurgeon was the same -pt is now receiving hip and back injection, will obtain records from specialist -pt states he was advised to have MRI of brain, MRI of brain was ordered, but pt has not completed it yet Degeneration of cervical intervertebral disc 08/2012 Fibromyalgia 01/18/2012 Assessment & Plan (11/12/2023 12:44 PM EDT): Discussed about probable diagnosis and its treatment Connected with integrated behavioral health service, and waiting for outside behavioral health service provider for long-term Assessment & Plan (04/12/2023 4:36 PM EDT): Discussed about probable diagnosis and its treatment Encouraged to engage in BHS; pt agrees will refer Assessment & Plan (07/07/2022 11:18 AM EST): Discussed about probable diagnosis and its treatment Encouraged to engage in BHS; pt agrees will refer JOSHUA (obstructive sleep apnea) 01/18/2012 Assessment & Plan (11/12/2023 12:41 PM EDT): Refer to Sleep Car Repairer -Dx with severe sleep apnea -pt has tried CPAP but was unable to tolerate and return the machine -consider ENT referral again Assessment & Plan (08/16/2023 9:12 AM EST): Refer to Sleep Car Repairer -Dx with severe sleep apnea -pt has tried CPAP but was unable to tolerate and return the machine -consider ENT referral -Obtain more history about the cause of anisocoria and ?precoucious puberty Assessment & Plan (04/12/2023 4:38 PM EDT): Refer to Sleep Car Repairer -Dx with severe sleep apnea -pt has tried CPAP but was unable to tolerate and return the machine -consider ENT referral Assessment & Plan (07/07/2022 11:19 AM EST): Pt returned CPAP machine, and is now having a difficulty sleeping, breathing, and BP is elevated Refer to sleep medicine clinic Resolved Problems Problem Noted Date Diagnosed Date Resolved Date Intermittent claudication 12/25/2009 Encounters * This document contains information received from the source organization and may not represent a complete record from that organization. Date Type Department Care Team Description 09/15/2024 Refill [facility] [address] [place] [address] wedding planning internship bilateral low back pain without sciatica (Primary Dx); Chronic pain syndrome; Chronic foot pain, unspecified laterality 09/15/[address] [facility] [address] [place] [id number] Araceli De La Rosa MD Med Refill 09/15/[address] [facility] [address] [place] [address] Araceli De La Rosa MD Insomnia, unspecified type 09/12/[address] [facility] [address] [place] [address] Araceli De La Rosa MD Chronic bilateral low back pain without sciatica (Primary Dx); Chronic pain of both knees; Plantar fasciitis; Chronic foot pain, unspecified laterality; Degeneration of cervical intervertebral disc 09/12/[address] [facility] [address] [place] [address] Araceli De La Rosa MD Referral 09/10/2024 Travel 08/16/2024 Telephone [facility] [address] [place] [address] RN 08/06/2024 Refill [facility] [address] [place] [address] Araceli De La Rosa MD Muscle spasm 08/04/[address] [facility] [address] [place] [address] Araceli De La Rosa MD Insomnia, unspecified type; Chronic pain of both knees; Chronic pain syndrome; Chronic bilateral low back pain without sciatica 07/31/2024 Telephone [facility] [address] [place] [address] Merced Arauz MA Durable Medical Equipment 07/27/2024 11:00 AM EST Clinical Support [facility] [address] [place] [address] RN Chronic pain syndrome (Primary Dx) 07/27/2024 Telephone [facility] [address] [place] [address] RN 07/27/2024 Travel 07/24/[address] [address] Araceli De La Rosa MD 07/24/[address] [address] Araceli De La Rosa MD 07/17/2024 10:15 AM EST Office Visit [address] [address] Araceli De La Rosa MD Chronic pain syndrome (Primary Dx); Primary hypertension; Mixed dyslipidemia; Tobacco use; Excessive sweating; Chronic foot pain, unspecified laterality; Plantar fasciitis; Dietary counseling; Exercise counseling; Overweight; Chronic intractable headache, unspecified headache type; Fibromyalgia; Recurrent major depressive disorder, remission status unspecified (CMS/HCC); Chronic bilateral low back pain without sciatica; Continuous opioid dependence (CMS/HCC); [employer] 07/17/2024 Travel 07/13/[address] [address] Blanca Pulido MA chart prep 07/04/[address] [address] Araceli De La Rosa MD Chronic pain of both knees; Chronic pain syndrome; Chronic bilateral low back pain without sciatica 06/28/2024 Telephone [facility] [address] [place] [address] RN 06/27/[address] [facility] [address] [place] [address] Araceli De La Rosa MD Muscle spasm 06/23/[address] [facility] [address] [place] [address] Patti Dhillon ANP Insomnia, unspecified type from Last 3 Months Immunizations Name Administration Dates Next Due Influenza injectable quadriv alent IIV4 with preservative 07/06/2022,03/30/2019,05/26/2018,07/16,05/07/2016 Influenza injectable quadriv alent preservative free 04/12/2023,05/21/2015 Influenza, IIV3, injectable 04/10/2014 Influenza, Split (incl. ozzy fied surface antigen) 06/26/2013,05/24/2012 Pfizer Covid-19 Vaccine 12+ 08/10/2023 Pneumococcal Conjugate PCV 20 04/12/2023 Pneumococcal Polysaccharide PPSV23 05/21/2015 TD (adult), 2 Lf tetanus tox oid, preservative free, adsorbed 07/06/2022 Tdap 09/27/2009 Social History Tobacco Use Types Packs/Day Years Used Date Smoking Tobacco: Every Day Cigarettes Passive Smoke Exposure: Never Smokeless Tobacco: Never Tobacco Cessation:Ready to Q uit: Not Asked; Counseling Given: Not Answered Alcohol Use Standard Drinks/Week Comments Never 0 [...] Orientation Straight 05/18/2022 10 :15 AM EDT Last Filed Vital Signs Vital Sign Reading Time Taken Comments Blood Pressure 149/91 07/17/2024 10:30 AM EST Pulse 105 07/17/2024 10:30 AM EST Temperature 36.5 ??C (97.7 ??F) 07/17/2024 10:[address] Respiratory Rate 20 07/17/2024 10:30 AM EST Oxygen Saturation 98% 07/17/2024 10:30 AM EST Inhaled Oxygen Concentration - - Weight 74 kg (163 lb 3.2 oz) 07/17/2024 10:30 AM EST Height 162.6 cm (5' 4 ) 07/17/2024 10:30 AM EST Body Mass Index 28.01 07/17/2024 10:30 AM EST Plan of Treatment Upcoming Encounters Date Type Department Care Team (Late st Contact Info) Description 10/18/2024 11:00 AM EDT Clinical Support [facility] [address] [place] [address], ILIA [address] [place] [address] 11/13/2024 9:30 AM EDT Office Visit [facility] [address] [place] [address] Araceli De La Rosa MD [address] [place] [address] Health Maintenance Due Date Last Done Comments CT Colonography 1975 Colonoscopy 1975 Colorectal Cancer Screening 1975 FIT DNA/Cologuard 1975 FIT 1975 FOBT 1975 Sigmoidoscopy 1975 Alcohol/Substance Use Screening 1987 Family Planning (PISQ) 1990 Hepatitis C Screening 1993 Hepatitis B Vaccines (1 of 3 - 19+ 3-dose series) 1994 COVID-19 Vaccine ( - season) 2024 08/10/2023, 01/02/2021, 12/05/2020 Influenza Vaccine (#1) 2024 , 07/06/2022, 03/30/2019, Additional history exists SDOH Screening 11/10/2024 11/11/2023 Depression Monitoring (PHQ-9) 02/07/2025 08/10/2024, 08/10/2024 Zoster Vaccines (1 of 2) 2025 Tobacco Screening 07/17/2025 07/17/2024 Depression Screening 08/10/2025 08/10/2024, 08/10/19 25 Lipid Panel 11/10/2028 11/11/2023, 04/2 11/2023, 05/06/2023, Additional history exists DTaP/Tdap/Td Vaccines (3 - Td or Tdap) 07/06/2032 07/06/2022, 09/27/2009 RSV Patients and Patients Aged 60 years or older (1 - 1-dose 75+ series) 2050 HIV Screening Completed 05/30/2020 Pneumococcal Vaccine: Pediatrics (0 to 5 Years) and At-Risk Patients (6 to 49) Years) Completed 04/12/2023, 05/21/2015 HIB Vaccines Aged Out No longer eligi ble based on patient's age to complete this topic HPV Vaccines Aged Out No longer eligi ble based on patient's age to complete this topic Hepatitis A Vaccines Aged Out No long er eligible based on patient's age to complete this topic IPV Vaccines Aged Out No longer eligi ble based on patient's age to complete this topic Meningococcal Vaccine Aged Out No shahana graciela eligible based on patient's age to complete this topic RSV under 20 months Aged Out No longe r eligible based on patient's age to complete this topic Rotavirus Vaccines Aged Out No longer eligible based on patient's age to complete this topic Procedures Procedure Name Priority Date/Time Associated Diagnosis Comments POCT ANDREZ-14 URINE DRUG SCREEN Routine 07/27/2024 11:35 AM EST Chronic pain syndrome LIPID PANEL WITH REFLEX TO DIRECT LDL Routine 11/11/2023 11:56 AM EDT Hypertriglyceridemia Primary hypertension ZZZ HISTORICAL HIV AB/AG Routine 05/30/2020 12:27 PM EST from Last 3 Months or Most Recently Relevant to Health Maintenance Results * POCT ANDREZ-14 Urine Drug Screen (07/27/2024 11:35 AM EST) THC Positive Oxycodone Screen, Urine Positive Urine Urine specimen obtained by clean catch procedure / Unknown 07/27/2024 11:35 AM EST Narrative Falguni [address] RN - 07/27/2024 11:35 AM EST Lot# [id number] Exp: 06-24-25 Araceli De La Rosa MD POINT OF CARE TEST ENTER/EDIT OR DERABLES Final Result * (ABNORMAL) Lipid Panel with Reflex to Direct LDL (11/11/2023 11:56 AM EDT) Triglycerides 458(H) <150 mg/dL [facility] Comment:Desirable Triglyceri de: less than 150 mg/dLBorderline High Triglyceride 150-199 mg/dLHigh Triglyceride: 200-499 mg/dLVery High Triglyceride: greater than or equal to 5OO mg/dL Cholesterol 269(H) <200 mg/dL [facility] Comment:Desirable Cholestero l: less than 200 mg/dLBorderline High Cholesterol: 200-239 mg/dLHigh Cholesterol: greater than 239 mg/dL LDL Cholesterol Calculated TNP <100 mg/dL [facility] Comment:Unable to calculate the LDL. The formula of Friedwald,Chan, and Walt is only valid if the triglycerides areless than 400 mg/dl. HDL Cholesterol 46 >40 mg/dL [facility] Comment:Desirable HDL: great er than 40 mg/dL Note: This HDL assay may give artificially low results in patients with liver disease. Blood 11/11/2023 11:5 6 AM EDT 11/11/2023 1:28 PM EDT Araceli De La Rosa MD LAB BLOOD ORDERABLES Final Resul t Performing Organization Address [facility]/ZIP Co de Phone Number [facility] [address] [place] [address] [phone] * HIV AB/AG (05/30/2020 12:27 PM EST) [facility] HIV AB/AG Nonreactive Nonreactive [facility] Comment: HIV-1 p24 Ag and/or HIV-1/HIV-2 Ab not detected. ?? A test result that is nonreactive does not exclude the possibility of exposure to or infection with HIV-1 and/or HIV-2. Nonreactive results in this assay for individuals with prior exposure to HIV-1 and/or HIV-2 may be due to antigen and antibody levels that are below the limit of detection of this assay. ?? The [employer] HIV Ag/Ab Combo assay result and supplemental assay results should be interpreted in conjunction with the patient's clinical presentation, history and other laboratory results. ??If the results are inconsistent with clinical evidence, additional testing is suggested to confirm the result. 05/30/2020 12:2 7 PM EST us Araceli De La Rosa MD HISTORICAL/NON ORDERABLE LABS Fi nal Result [facility] [address] from Last 3 Months or Most Recently Relevant to Health Maintenance Insurance [facility] Care Teams Rotary Engine Assembler Relationship Specialty Start Date End Date Araceli De La Rosa MD [address] [place] [address] PCP - General Family Medicine 02/06/14
--- OUTSIDE RECORDS SUMMARY | 2024-09-21 16:06 | XMS_ITS | Encounter Summary ---
Author Organization [facility] Address [address] [facility] 7t [place] [address] Care Team Providers Care Customs Manager Name Role Phone Araceli De La Rosa MD Primary Care Provider [phone] Encounter Details Date Type Department Care Team (Late st Contact Info) Description 07/03/[address] [facility] [address] [place] [phone] Katie Britt, ILIA Social History Tobacco Use Types Packs/Day Years Used Date Smoking Tobacco: Never Assessed Depression Answer Date Recorded Patient Health Questionnaire-9 Score 7 07/06/2022 Depression Answer Date Recorded Patient Health Questionnaire-2 Score 3 07/06/2022 Sex and Gender Information Value Date Recorded Sex Assigned at Male 05/18/2022 10:15 AM EDT Legal Sex Male 10:15 AM EDT Gender Identity Male 05/18/2022 10:15 AM EDT Sexual Orientation Straight 05/18/2022 10 :15 AM EDT COVID-19 Exposure Response Date Recorded In the last 10 days, have yo u been in contact with someone who was confirmed or suspected to have Coronavirus/COVID-19? No / Unsure 07/06/2022 10:56 AM EST documented as of this encounter Plan of Treatment Upcoming Encounters Date Type Department Care Team (Late st Contact Info) Description 10/18/2024 11:00 AM EDT Clinical Support [facility] [address] [place] [address], [place] [address] [place] [address] 11/13/2024 9:30 AM EDT Office Visit [facility] [address] [place] [address] [place] [address] Araceli De La Rosa MD [address] [place] [address] documented as of this encounter Visit Diagnoses Not on filedocumented in this encounter Care Teams Customs Manager Relationship Specialty Start Date End Date Araceli De La Rosa MD [address] [place] [address] PCP - General Family Medicine 02/06/14 documented as of this encounter
--- OUTSIDE RECORDS SUMMARY | 2024-09-21 16:06 | XMS_ITS | Encounter Summary ---
Author Organization [facility] Address [address] [facility] 7 [place] [address] Care Team Providers Care Public Opinion Survey Taker Name Role Phone Araceli De La Rosa MD Primary Care Provider [phone] Reason for Referral * Consultation (Routine) - Closed Specialty Diagnoses / Procedures Referred By Contac t Referred To Contact Chiropractic Medicine Diagnoses Chronic bilateral low back pain without sciatica Chronic pain of both knees Plantar fasciitis Chronic foot pain, unspecified laterality Degeneration of cervical intervertebral disc Araceli De La Rosa MD [address] [place] [address] Phone: tel: fax: Referral ID Status Reason Start Date Expiration Date V isits Requested Visits Authorized [id number] Closed Specialty Services Required 09/18/2024 09/18/2025 1 1 * Consultation (Routine) - Closed Specialty Diagnoses / Procedures Referred By Contac t Referred To Contact Chiropractic Medicine Diagnoses Chronic bilateral low back pain without sciatica Araceli De La Rosa MD [address] [place], [place] Phone: tel: fax: Zaria Kidd [address] [place] [address] Phone: tel: fax: Referral ID Status Reason Start Date Expiration Date V isits Requested Visits Authorized [id number] Closed Specialty Services Required 09/12/2024 09/12/2025 1 1 Encounter Details Date Type Department Care Team (Late st Contact Info) Description 09/12/2024 Orders Only [facility] [address] [place], [place] [phone] Araceli De La Rosa MD [address] [place] [address] Chronic bilateral low back pain without sciatica (Primary Dx); Chronic pain of both knees; Plantar fasciitis; Chronic foot pain, unspecified laterality; Degeneration of cervical intervertebral disc Social History Tobacco Use Types Packs/Day Years [...] 11:00 AM EDT Clinical Support [facility] [address] [place] [address], RN [address] [place] [address] 11/13/2024 9:30 AM EDT Office Visit [facility] [address] [place] [address] Araceli De La Rosa MD [address] [place] [address] Scheduled Referrals Name Type Priority Associated Diagnoses Orde r Schedule Referral to Chiropractic Outpatient Referral Routine Chronic bilateral low back pain without sciatica Expected: 09/12/2024 (Approximate), Expires: 09/12/2025 Referral to Chiropractic Outpatient Referral Routine Chronic bilateral low back pain without sciatica Chronic pain of both knees Plantar fasciitis Chronic foot pain, unspecified laterality Degeneration of cervical intervertebral disc Expected: 09/18/2024 (Approximate), Expires: 09/18/2025 documented as of this encounter Visit Diagnoses Diagnosis Chronic bilateral low back pain without sciatica- Primary Chronic pain of both knees Plantar fasciitis Plantar fascial fibromatosis Chronic foot pain, unspecified laterality Degeneration of cervical intervertebral disc documented in this encounter Additional Health Concerns Assessment Noted Time PHQ-9 Depression Total Score: 14 025 2:09 PM EST documented as of this encounter Care Teams Public Opinion Survey Taker Relationship Specialty Start Date End Date Araceli De La Rosa MD [address] [place] [address] PCP - General Family Medicine 02/06/14 documented as of this encounter
--- OUTSIDE RECORDS SUMMARY | 2024-09-21 16:06 | XMS_ITS ---
Author Organization [facility] Address [address] [place] [phone] Care Team Providers Care Margarine Maker Name Role Phone Estrella CULLEN, Araceli Primary Care Provider Rom Kim [phone] REASON FOR VISIT Patient presents today for a COLON SCREENING Encounters Encounter Location Date Provider Diagnosis [facility] [address] [place] [phone] 09/01/2023 Rom Rader Plan Of Treatment No Information Progress Notes * DOYLE RODASDOB:1975 ([age] yo M)Acc No.[id number]:09/01/2023 Progress Notes Patient:?DOYLE RODAS Provider:?Rom Rader MD :1975???Age:48 Y???Sex:Male Michael e:09/01/2023 Address:[address] [place], [place] [id number] Pcp:Araceli De La Rosa MD Subjective: * [...] Date:? 024 Generated for Jaime rowell/Violeta/Kristophersmitting on:?09/21/2024 04:06 PM EST
--- OUTSIDE RECORDS SUMMARY | 2024-09-21 16:06 | XMS_ITS | Encounter Summary ---
Author Organization [facility] Address [address] [facility] 7t [place] [address] Care Team Providers Care Rn Concurrent Review Name Role Phone Araceli De La Rosa MD Primary Care Provider [phone] Reason for Visit * Reason Onset Date Comments Med Refill 05/04/2024 Encounter Details Date Type Department Care Team ([facility] st Contact Info) Description 05/04/2024 Telephone [facility] [address] [place], [place] [phone] Araceli De La Rosa MD [address] [place], [place] [phone] Med Refill Social History Tobacco Use Types [...] encounter Miscellaneous Notes * Telephone Encounter - Nandini Alston - 05/04/2024 2:08 PM EDT TC from pt requesting medication refill. Medications needing refill : oxyCODONE-acetaminophen (Percocet) 5-325 MG tablet To be sent to: [id number] - [place], [place] - [address] [place] [address] AT [facility] documented in this encounter Plan of Treatment Upcoming Encounters Date Type Department Care Team (Late st Contact Info) Description 10/18/2024 11:00 AM EDT Clinical Support [facility] [address] [place] [address] RN 505 [place] [address] 11/13/2024 9:30 AM EDT Office Visit [facility] [address] [place] [address] Araceli De La Rosa MD [address] [place] [address] documented as of this encounter Visit Diagnoses Not on filedocumented in this encounter Additional Health Concerns Assessment Noted Time PHQ-9 Depression Total Score: 10 024 10:31 AM EDT documented as of this encounter Care Teams Rn Concurrent Review Relationship Specialty Start Date End Date Araceli De La Rosa MD [address] [place] [address] PCP - General Family Medicine 02/06/14 documented as of this encounter
--- OUTSIDE RECORDS SUMMARY | 2024-09-21 16:06 | XMS_ITS | Encounter Summary ---
Author Organization [facility] Address [address] [facility] 7t [place] [address] Care Team Providers Care Hooker Laster Name Role Phone Araceli De La Rosa MD Primary Care Provider [phone] Reason for Visit * Reason Onset Date Comments Med Refill 07/08/2023 Encounter Details Date Type Department Care Team ([facility] st Contact Info) Description 07/08/2023 Telephone [facility] [address] [place], [place] [phone] Araceli De La Rosa MD [address] [place], [place] [phone] Med Refill Social History Tobacco Use Types [...] * Telephone Encounter - Bowen Tse - 07/08/2023 9:23 AM EST Tc from patient requesting a medication refill for oxyCODONE-acetaminophen (Percocet) 5-325 MG tablet. documented in this encounter Plan of Treatment Upcoming Encounters Date Type Department Care Team (Late st Contact Info) Description 10/18/2024 11:00 AM EDT Clinical Support [facility] [address] [place] [address], RN [address] [place] [address] 11/13/2024 9:30 AM EDT Office Visit [facility] [address] [place] [address] Araceli De La Rosa MD [address] [place] [address] documented as of this encounter Visit Diagnoses Not on filedocumented in this encounter Additional Health Concerns Assessment Noted Time PHQ-9 Depression Total Score: 7 07/06/20 22 11:15 AM EST documented as of this encounter Care Teams Hooker Laster Relationship Specialty Start Date End Date Araceli De La Rosa MD [address] [place] [address] PCP - General Family Medicine 02/06/14 documented as of this encounter
--- OUTSIDE RECORDS SUMMARY | 2024-09-21 16:06 | XMS_ITS ---
Author Organization [facility] Address [address] [place] [phone] Care Team Providers Care Chinese Language Professor Name Role Phone Estrella CULLEN, Araceli Primary Care Provider Rom Kim [phone] REASON FOR VISIT cancel appt Encounters Encounter Location Date Provider Diagnosis [facility] [address] [place] [phone] 01/11/2024 Rom Rader Plan Of Treatment No Information Progress Notes * CLARK DOYLEDOB:1975 ([age] yo M)Acc No.[id number]:01/11/2024 Patient:?DOYLE RODAS :1975???Age:48 Y???Sex:Male Address:[address] [place] [address] [place], [address] * true * Date:? Generated for Jaime rowell/Violeta/eTransmitting on:?09/21/2024 04:06 PM EST
--- OUTSIDE RECORDS SUMMARY | 2024-09-21 16:06 | XMS_ITS | Encounter Summary ---
Author Organization [facility] Address [address] [facility] 7t [place] [address] Care Team Providers Care Art Objects Salesperson Name Role Phone Araceli De La Rosa MD Primary Care Provider [phone] Reason for Visit * Reason Onset Date Comments Med Refill 12/08/2022 Encounter Details Date Type Department Care Team ([facility] st Contact Info) Description 12/08/2022 Telephone [facility] [address] [place], [place] [phone] Araceli De La Rosa MD [address] [place], [place] [phone] Med Refill Social History Tobacco Use Types [...] suspected to have Coronavirus/COVID-19? No / Unsure 11/25/2022 9:16 AM EDT documented as of this encounter Miscellaneous Notes * Telephone Encounter - Harpreet Haley - 12/08/2022 10:16 AM EDT Tc from pt requesting med refill oxyCODONE-acetaminophen (Percocet) 5-325 MG tablet documented in this encounter Plan of Treatment Upcoming Encounters Date Type Department Care Team (Late st Contact Info) Description 10/18/2024 11:00 AM EDT Clinical Support [facility] [address] [place] [address] RN 505 [place] [address] 11/13/2024 9:30 AM EDT Office Visit [facility] [address] [place] [address] Araceli De La Rosa MD [address] [place] [address] documented as of this encounter Visit Diagnoses Not on filedocumented in this encounter Additional Health Concerns Assessment Noted Time PHQ-9 Depression Total Score: 7 07/06/20 22 11:15 AM EST documented as of this encounter Care Teams Art Objects Salesperson Relationship Specialty Start Date End Date Araceli De La Rosa MD [address] [place] [address] PCP - General Family Medicine 02/06/14 documented as of this encounter
--- OUTSIDE RECORDS SUMMARY | 2024-09-21 16:06 | XMS_ITS | Encounter Summary ---
Author Organization [facility] Address [address] [facility] 7t [place] [address] Care Team Providers Care Almond Blancher Hand Name Role Phone Araceli De La Rosa MD Primary Care Provider [phone] Reason for Visit * Reason Comments Med Refill Encounter Details Date Type Department Care Team (Late st Contact Info) Description 10/10/2022 Refill [facility] [address] [place], [place] [phone] Melinda Lockwood MD 230 [place], [place] [phone] Muscle spasm Social History Tobacco Use Types [...] Description 10/18/2024 11:00 AM EDT Clinical Support [facility] [address] [place] [address], [place] [address] [place] [address] 11/13/2024 9:30 AM EDT Office Visit [facility] [address] [place] [address] Araceli De La Rosa MD [address] [place] [address] documented as of this encounter Visit Diagnoses Diagnosis Muscle spasm Spasm of muscle documented in this encounter Additional Health Concerns Assessment Noted Time PHQ-9 Depression Total Score: 7 07/06/20 22 11:15 AM EST documented as of this encounter Care Teams Almond Blancher Hand Relationship Specialty Start Date End Date Araceli De La Rosa MD [address] [place] [phone] PCP - General Family Medicine 02/06/14 documented as of this encounter
[2024-09-22 08:50] LABS: HIV AB/AG Nonreactive (Nonreactive); HIV Num 1 0.06 S/CO (0.00-0.99)
[2024-09-22 09:14] LABS: Syphilis Screen Nonreactive (Nonreactive)
[2024-09-22 09:48] LABS: Lyme Abs Screen <0.90 index
== END 2024-09-21 13:16 | disposition home or self-care (01) ==
LOC: HO.LAB 13:15
PROVIDERS: PCP Family Medicine; Visit Provider Psychiatry & Neurology Neurology
DX: G93.40 Encephalopathy, unspecified (principal)
CPT/HCPCS: 36415; 85652; 86617; 86618; 86780; 87389

== ENCOUNTER 2024-11-13 10:30 | Outpatient (REF) | payer OTHER, SELFPAY ==
[2024-11-13 11:02] LABS: MANUAL DIFF FLAG NO
[2024-11-13 11:25] LABS: Basophils Percent Auto 0.3 % (0-2); Eosinophils Percent Auto 0.1 % (0-4); Hematocrit 42.7 % (42.0-52.0); Hemoglobin 14.1 g/dl (14.0-18.0); Imm Gran Abs Auto 0.08 X10*3/uL (0.00-0.03); Imm Gran Pct Auto 0.6 % (0.0-0.4); Lymphocytes Absolute Auto 1.8 X10*3/uL (1.2-4.9); Mean Corpuscular Hemoglobin 30.1 pg (27.0-33.0); Mean Platelet Volume 10.3 fL (9.4-12.4); Monocytes Absolute Auto 0.9 X10*3/uL (0.1-1.2); Monocytes Percent Auto 6.7 % (2-11); Neutrophils Absolute Auto 11.1 x10*3/uL (2.0-8.3); Neutrophils Percent Auto 79.3 % (45-73); Platelet Count 268 X10*3/uL (160-400); Red Blood Count 4.69 X10*6/uL (4.60-5.80); Red Cell Distribution Width 14.5 % (11.0-16.0)
[2024-11-13 11:46] LABS: Estimated Average Glucose 108 mg/dL; Hemoglobin A1C 131.5248 umol/L; Hemoglobin A1c % 5.4 % (<6.0); Total Hemoglobin (HGBA1C) 3651.2788 umol/L
[2024-11-13 12:06] LABS: Creatinine Urine 173.17 mg/dL
[2024-11-13 12:15] LABS: Alanine Aminotransferase 26 U/L (0-40); Albumin Level 4.6 g/dL (3.5-5.0); Alkaline Phosphatase 106 U/L (39-117); Anion Gap 13 (12-20); Aspartate Amino Transferase 26 U/L (5-37); Bilirubin Total 0.2 mg/dL (0.0-1.0); Blood Urea Nitrogen 19 mg/dL (9-16); Calcium 9.5 mg/dL (8.4-10.2); Carbon Dioxide 22 mmol/L (22-29); Chloride 108 mmol/L (96-108); Cholesterol 205 mg/dL (<200); Estimated Glomerular Filt Rate > 60; Glucose Random 104 mg/dL (60-115); HDL Cholesterol 40 mg/dL (>40); Potassium 4.3 mmol/L (3.3-5.1); Sodium 139 mmol/L (135-145); Total Protein 7.9 g/dL (6.5-8.0); Triglycerides 444 mg/dL (<150)
[2024-11-13 12:20] LABS: Reflex LDLD? Yes
--- OUTSIDE RECORDS SUMMARY | 2024-11-13 12:21 | XMS_ITS | Encounter Summary ---
Author Organization [email or web address] Address [address] [facility] 7t [place] [address] Care Team Providers Care Marine Specialist Name Role Phone Araceli De La Rosa MD Primary Care Provider [phone] Encounter Details Date Type Department Care Team ([facility] st Contact Info) Description 11/13/2024 9:30 AM EDT Office Visit [facility] MEDICINE [address] [place], [place] [phone] Araceli De La Rosa MD [address] [place], [place] [phone] Primary hypertension (Primary Dx); JOSHUA (obstructive sleep apnea); Chronic intractable headache, unspecified headache type; Tobacco use; Recurrent major depressive disorder, remission status unspecified (CMS/HCC); Mixed dyslipidemia; Chronic sinusitis, unspecified location; Dizziness; Umbilical hernia without obstruction and without gangrene Social History Tobacco Use Types Packs/Day Years [...] AM EDT documented as of this encounter Last Filed Vital Signs Vital Sign Reading Time Taken Comments Blood Pressure 150/96 11/13/2024 10:08 AM EDT Pulse 111 11/13/2024 9:25 AM EDT Temperature 36.2 ??C (97.1 ??F) 11/13/2024 9:25 AM ED T Respiratory Rate 19 11/13/2024 9:25 AM EDT Oxygen Saturation 97% 11/13/2024 9:25 AM EDT Inhaled Oxygen Concentration - - Weight 72.1 kg (159 lb) 11/13/2024 9:25 AM EDT Height - - Body Mass Index 27.29 07/17/2024 10:30 AM EST documented in this encounter Miscellaneous Notes * Assessment & Plan Note - Gayathri Moses MA - 11/13/2024 10:28 AM EDT Associated Problem(s): Umbilical hernia without obstruction and without gangrene - Asymptomatic and mild. Will monitor at this time. * Assessment & Plan Note - Gayathri Moses MA - 11/13/2024 10:07 AM EDT Associated Problem(s): Chronic sinusitis - Referred to ENT 11/13/2024 * Assessment & Plan Note - Gayathri Moses MA - 11/13/2024 9:04 AM EDTAssociated Problem(s): Mixed dyslipidemia Lipid Profile: 07/06/22 TC 350; HDL 46; TG 991; LDL could not calculate 05/03/23 total cholesterol 219; triglyceride 232; LDL 133; HDL 40 Current medication: Atorvastatin 20 mg at bedtime, improve adherence Continue working on lifestyle modifications * Assessment & Plan Note - Gayathri Moses MA - 11/13/2024 9:04 AM EDTAssociated Problem(s): Tobacco use - Smoking cessation is encouraged in order to help with his high blood pressure. * Assessment & Plan Note - Gayathri Moses MA - 11/13/2024 9:04 AM EDTAssociated Problem(s): Recurrent major depression (CMS/HCC) Hx psychiatric hospitalization for MDD; he was prescribed olanzapine, but self- discontinued. Question of Cordova II per discharge summary - recently seen by clinician and has follow-up appointment tomorrow, patient would like to try anti-depressants - started escitroplam 5 mg daily and hydroxzine 25 mg Q8H prn in October 2023, improve adherence * Assessment & Plan Note - Gayathri Moses MA - 11/13/2024 9:04 AM EDTAssociated Problem(s): Primary hypertension Goal BP < 140/90 per JNC-8, < 130/80 per ACC/AHA (Tx threshold 140/90) -BP not at goal -continue lisinopril 5 mg daily, improve adherence -discussed about the importance for Tx for JOSHUA -Work on lifestyle modification * Assessment & Plan Note - Gayathri Moses MA - 11/13/2024 9:03 AM EDTAssociated Problem(s): Chronic headache - multifactorial (JOSHUA, sinus disease, chronic pain syndrome) - Evaluated by neurologist. Started on Cymbalta for migraines. - optimize treatment for other chronic disease - work on smoking cessation - improve sleep - consider judicious use of THC / CBD - refer to neurology * Assessment & Plan Note - Gayathri Moses MA - 11/13/2024 9:03 AM EDTAssociated Problem(s): JOSHUA (obstructive sleep apnea) Refer to Sleep Wage Analyst -Dx with severe sleep apnea -pt has tried CPAP but was unable to tolerate and return the machine -consider ENT referral again documented in this encounter Plan of Treatment Upcoming Encounters Date Type Department Care Team (Late st Contact Info) Description 01/18/2025 10:00 AM EDT Clinical Support [facility] MED & PEDS [address] [place] [address] RN [address] [place] [address] Scheduled Orders Name Type Priority Associated Diagnoses Orde r Schedule ECG 12 lead ECG Routine Ordered: 10/18 documented as of this encounter Visit Diagnoses Diagnosis Primary hypertension- Primary Unspecified essential hypertension JOSHUA (obstructive sleep apnea) Obstructive sleep apnea (adult) (pediatric) Chronic intractable headache, unspecified headache type Tobacco use Recurrent major depressive disorder, remission status unspecified (CMS/HCC) Mixed dyslipidemia Chronic sinusitis, unspecified location Dizziness Dizziness and giddiness Umbilical hernia without obstruction and without gangrene documented in this encounter Additional Health Concerns Assessment Noted Time PHQ-9 Depression Total Score: 14 025 2:09 PM EST documented as of this encounter Care Teams Marine Specialist Relationship Specialty Start Date End Date Araceli De La Rosa MD [address] [place] [address] PCP - General Family Medicine 02/06/14 documented as of this encounter
--- OUTSIDE RECORDS SUMMARY | 2024-11-13 12:21 | XMS_ITS | Encounter Summary ---
Author Organization [employer] Address [address] [facility] 7t [place] [address] Care Team Providers Care Energy Operations Vice President Name Role Phone Araceli De La Rosa MD Primary Care Provider [phone] Encounter Details Date Type Department Care Team ([facility] st Contact Info) Description 05/03/2023 Orders Only [facility] MEDICINE 230 [place], [place] [phone] Araceli De La Rosa MD [address] [place], [place] [phone] Chronic bilateral low back pain without sciatica [...] t he electric, gas, oil or water [employer] threatened to shut off services in your [...] Description 01/18/2025 10:00 AM EDT Clinical Support [facility] MED & PEDS 505 [place] [address], [place] [address] [place] [address] documented as of this encounter Visit Diagnoses Diagnosis Chronic bilateral low back pain without sciatica- Primary Chronic pain of both knees documented in this encounter Additional Health Concerns Assessment Noted Time PHQ-9 Depression Total Score: 7 07/06/20 22 11:15 AM EST documented as of this encounter Care Teams Energy Operations Vice President Relationship Specialty Start Date End Date Araceli De La Rosa MD [address] [place] [address] PCP - General Family Medicine 02/06/14 documented as of this encounter
--- OUTSIDE RECORDS SUMMARY | 2024-11-13 12:21 | XMS_ITS | Encounter Summary ---
Author Organization [employer] [facility] Address [address] [facility] 7t [place] [address] Care Team Providers Care Heavy Equipment Operator/Paver Name Role Phone Araceli De La Rosa MD Primary Care Provider [phone] Reason for Visit * Reason Onset Date Comments Med Refill 09/14/2022 Encounter Details Date Type Department Care Team (Late st Contact Info) Description 09/14/2022 Telephone [facility] MEDICINE [address] [place], [place] [phone] Araceli De La Rosa MD 230 [place], [place] [phone] Med Refill Social History Tobacco Use Types [...] Description 01/18/2025 10:00 AM EDT Clinical Support [facility] MED & PEDS 505 [place] [address], RN 505 [place] [address] documented as of this encounter Visit Diagnoses Not on filedocumented in this encounter Additional Health Concerns Assessment Noted Time PHQ-9 Depression Total Score: 7 07/06/20 22 11:15 AM EST documented as of this encounter Care Teams Heavy Equipment Operator/Paver Relationship Specialty Start Date End Date Araceli De La Rosa MD [address] [place] [address] PCP - General Family Medicine 02/06/14 documented as of this encounter
--- OUTSIDE RECORDS SUMMARY | 2024-11-13 12:21 | XMS_ITS | Encounter Summary ---
Author Organization [employer] Address [address] [facility] 7t [place] [address] Care Team Providers Care Salesperson Sewing Machines Name Role Phone Araceli De La Rosa MD Primary Care Provider [phone] Encounter Details Date Type Department Care Team (Latest Contact Info) Description 11/13/2024 Travel Social History Tobacco Use Types Packs/Day [...] Description 01/18/2025 10:00 AM EDT Clinical Support [facility] MED & PEDS [address] [place] [address], RN [address] [place] [address] documented as of this encounter Visit Diagnoses Not on filedocumented in this encounter Additional Health Concerns Assessment Noted Time PHQ-9 Depression Total Score: 14 025 2:09 PM EST documented as of this encounter Care Teams Salesperson Sewing Machines Relationship Specialty Start Date End Date Araceli De La Rosa MD [address] [place] [address] PCP - General Family Medicine 02/06/14 documented as of this encounter
--- OUTSIDE RECORDS SUMMARY | 2024-11-13 12:21 | XMS_ITS | Encounter Summary ---
Author Organization [employer] [facility] Address [address] [facility] 7t [place] [address] Care Team Providers Care Head Strength And Conditioning Coach Name Role Phone Araceli De La Rosa MD Primary Care Provider [phone] Reason for Visit * Reason Comments Med Refill Encounter Details Date Type Department Care Team (Late st Contact Info) Description 10/10/2022 Refill [facility] MEDICINE 230 [place], [place] [phone] Melinda Lockwood MD 230 [place] [address] Muscle spasm Social History Tobacco Use Types [...] Description 01/18/2025 10:00 AM EDT Clinical Support [facility] MED & PEDS 505 [place], [place] [phone] [address], [place] [address] [place] [address] documented as of this encounter Visit Diagnoses Diagnosis Muscle spasm Spasm of muscle documented in this encounter Additional Health Concerns Assessment Noted Time PHQ-9 Depression Total Score: 7 07/06/20 22 11:15 AM EST documented as of this encounter Care Teams Head Strength And Conditioning Coach Relationship Specialty Start Date End Date Araceli De La Rosa MD [address] [place] [address] PCP - General Family Medicine 02/06/14 documented as of this encounter
--- OUTSIDE RECORDS SUMMARY | 2024-11-13 12:21 | XMS_ITS | Encounter Summary ---
Author Organization [employer] Address [address] [facility] 7t [place] [address] Care Team Providers Care Data Warehouse Specialist Name Role Phone Araceli De La Rosa MD Primary Care Provider [phone] Reason for Visit * Reason Onset Date Comments Med Refill 07/08/2023 Encounter Details Date Type Department Care Team ([facility] st Contact Info) Description 07/08/2023 Telephone [facility] MEDICINE 230 [place], [place] [phone] Araceli De La Rosa MD 230 [place], [place] [phone] Med Refill Social History Tobacco Use Types [...] Description 01/18/2025 10:00 AM EDT Clinical Support [facility] MED & PEDS 505 [place] [address], RN 505 [place] [address] documented as of this encounter Visit Diagnoses Not on filedocumented in this encounter Additional Health Concerns Assessment Noted Time PHQ-9 Depression Total Score: 7 07/06/20 22 11:15 AM EST documented as of this encounter Care Teams Data Warehouse Specialist Relationship Specialty Start Date End Date Araceli De La Rosa MD 230 [place] [address] PCP - General Family Medicine 02/06/14 documented as of this encounter
--- OUTSIDE RECORDS SUMMARY | 2024-11-13 12:22 | XMS_ITS | Encounter Summary ---
Author Organization [employer] Address [address] [facility] 7t [place] [address] Care Team Providers Care Home Health Attendant Name Role Phone Araceli De La Rosa MD Primary Care Provider [phone] Reason for Visit * Reason Comments Med Refill Encounter Details Date Type Department Care Team ([facility] st Contact Info) Description 06/08/2024 Refill [facility] MEDICINE 230 [place], [place] [phone] Araceli De La Rosa MD 230 [place], [place] [phone] Muscle spasm Social History Tobacco Use Types Packs/Day Years Used Date Smoking Tobacco: Every Day Cigarettes Passive Smoke Exposure: Never Smokeless Tobacco: Never Depression Answer Date Recorded Patient Health Questionnaire-9 Score 10 11/11/2023 Patient Health Questionnaire-9 Score 10 11/11/2023 Last PHQ-9: Questionnaire Data Not on file 0 11/11/2023 Housing Stability Answer Date Recorded What is your housing situation today? I have klelen duong 11/11/[address] you [...] Description 01/18/2025 10:00 AM EDT Clinical Support [facility] MED & PEDS 505 [place] [address], [place] [address] [place] [address] documented as of this encounter Visit Diagnoses Diagnosis Muscle spasm Spasm of muscle documented in this encounter Additional Health Concerns Assessment Noted Time PHQ-9 Depression Total Score: 10 024 10:31 AM EDT documented as of this encounter Care Teams Home Health Attendant Relationship Specialty Start Date End Date Araceli De La Rosa MD 230 [place] [address] PCP - General Family Medicine 02/06/14 documented as of this encounter
--- OUTSIDE RECORDS SUMMARY | 2024-11-13 12:22 | XMS_ITS | Encounter Summary ---
Author Organization [employer] Address [address] [facility] 7t [place] [address] Care Team Providers Care Party Plan Dealer Name Role Phone Araceli De La Rosa MD Primary Care Provider [phone] Reason for Visit * Reason Onset Date Comments Med Refill 03/15/2024 Encounter Details Date Type Department Care Team ([facility] st Contact Info) Description 03/15/2024 Telephone [facility] MEDICINE 230 [place], [place] [phone] Araceli De La Rosa MD [address] [place], [place] [phone] Med Refill Social History Tobacco Use Types [...] 5-325 MG tablet To be sent to: [id number] - [place], [place] - [address] [place] [address] AT [address] OF [facility] & [facility] documented in this encounter Plan of Treatment Upcoming Encounters Date Type Department Care Team (Late st Contact Info) Description 01/18/2025 10:00 AM EDT Clinical Support [facility] MED & [facility]EDS 505 [place] [address], RN 505 [place] [address] documented as of this encounter Visit Diagnoses Not on filedocumented in this encounter Additional Health Concerns Assessment Noted Time PHQ-9 Depression Total Score: 10 024 10:31 AM EDT documented as of this encounter Care Teams Party Plan Dealer Relationship Specialty Start Date End Date Araceli De La Rosa MD 230 [place] [address] PCP - General Family Medicine 02/06/14 documented as of this encounter
--- OUTSIDE RECORDS SUMMARY | 2024-11-13 12:22 | XMS_ITS | Encounter Summary ---
Author Organization [employer] Address [address] [facility] 7t [place] [address] Care Team Providers Care National Van Owner Operator Name Role Phone Araceli De La Rosa MD Primary Care Provider [phone] Reason for Visit * Reason Onset Date Comments Med Refill 09/15/2024 Encounter Details Date Type Department Care Team ([facility] st Contact Info) Description 09/15/2024 Telephone [facility] MEDICINE 230 [place], [place] [phone] Araceli De La Rosa MD 230 [place], [place] [phone] Med Refill Social History Tobacco Use Types [...] Miscellaneous Notes * Telephone Encounter - Ortiz Gao - 09/15/2024 1:42 PM EST TC from pt requesting medication refill. Medications needing refill : oxyCODONE-acetaminophen (Percocet) 5-325 MG tablet To be sent to: [id number] - [place], [place] - [address] [facility] AT [facility] OF [facility] & [facility] documented in this encounter Plan of Treatment Upcoming Encounters Date Type Department Care Team (Late st Contact Info) Description 01/18/2025 10:00 AM EDT Clinical Support [facility] MED & PEDS 505 [place] [address], [place] 505 [place] [address] documented as of this encounter Visit Diagnoses Not on filedocumented in this encounter Additional Health Concerns Assessment Noted Time PHQ-9 Depression Total Score: 14 025 2:09 PM EST documented as of this encounter Care Teams National Van Owner Operator Relationship Specialty Start Date End Date Araceli De La Rosa MD [address] [place] [address] PCP - General Family Medicine 02/06/14 documented as of this encounter
--- OUTSIDE RECORDS SUMMARY | 2024-11-13 12:22 | XMS_ITS | Encounter Summary ---
Author Organization [employer] Address [address] [facility] 7t [place] [address] Care Team Providers Care Screen Cleaner Name Role Phone Araceli De La Rosa MD Primary Care Provider [phone] Reason for Visit * Reason Onset Date Comments Med Refill 05/04/2024 Encounter Details Date Type Department Care Team ([facility] st Contact Info) Description 05/04/2024 Telephone [facility] MEDICINE 230 [place], [place] [phone] Araceli De La Rosa MD 230 [place], [place] [phone] Med Refill Social History Tobacco Use Types [...] 5-325 MG tablet To be sent to: [facility][id number] - [place], [place] - [address] [place] [address] AT [facility] OF [facility] & [facility] documented in this encounter Plan of Treatment Upcoming Encounters Date Type Department Care Team (Late st Contact Info) Description 01/18/2025 10:00 AM EDT Clinical Support [facility] MED & PEDS 505 [place] [address], RN 505 [place] [address] documented as of this encounter Visit Diagnoses Not on filedocumented in this encounter Additional Health Concerns Assessment Noted Time PHQ-9 Depression Total Score: 10 024 10:31 AM EDT documented as of this encounter Care Teams Screen Cleaner Relationship Specialty Start Date End Date Araceli De La Rosa MD [address] [place] [address] PCP - General Family Medicine 02/06/14 documented as of this encounter
--- OUTSIDE RECORDS SUMMARY | 2024-11-13 12:22 | XMS_ITS | Encounter Summary ---
Author Organization [facility] Address [address] [facility] 7t [place] [address] Care Team Providers Care Engineering Specialist Name Role Phone Araceli De La Rosa MD Primary Care Provider [phone] Reason for Visit * Reason Onset Date Comments Med Refill 12/08/2022 Encounter Details Date Type Department Care Team ([facility] st Contact Info) Description 12/08/2022 Telephone [facility] [place] [facility] MEDICINE 230 [place], [place] [phone] Araceli De La Rosa MD 230 [place], [place] [phone] Med Refill Social History Tobacco Use Types [...] [facility] 505 [place] [address] RN 505 [place] [address] documented as of this encounter Visit Diagnoses Not on filedocumented in this encounter Additional Health Concerns Assessment Noted Time PHQ-9 Depression Total Score: 7 07/06/20 22 11:15 AM EST documented as of this encounter Care Teams Engineering Specialist Relationship Specialty Start Date End Date Araceli De La Rosa MD 230 [place] [address] PCP - General Family Medicine 02/06/14 documented as of this encounter
--- OUTSIDE RECORDS SUMMARY | 2024-11-13 12:22 | XMS_ITS | Clinical Summary ---
Author Organization [employer] Address [address] [facility] [address] [place] [address] Care Team Providers Care Grain Operator Name Role Phone Araceli De La Rosa MD Primary Care Provider [phone] Allergies Active Allergy Reactions Criticality Noted Date [...] HOURS 60 tablet 1 08/08/19 25 Active oxyCODONE-aceta minophen (Percocet) 5-325 MG tabletIndicatio ns:Chronic bilateral low back pain without sciatica,Chroni c pain syndrome,Chroni c foot pain, unspecified laterality Take 1 tablet by mouth every 12 (twelve) hours if needed for severe pain for up to 28 days. 56 tablet 10/19/19 25 025 Active zolpidem (Ambien) 5 MG tabletIndicatio ns:Insomnia, unspecified type TAKE 1 TABLET BY MOUTH AT BEDTIME NEEDED FOR SLEEP 14 tablet 10/19/19 25 Active zolpidem (Ambien) 5 MG tabletIndicatio ns:Insomnia, unspecified type TAKE 1 TABLET BY MOUTH AT BEDTIME NEEDED FOR SLEEP 14 tablet 09/17/19 25 025 Discontinued(R eorder (will not trigger notification to Pharmacy)) oxyCODONE-aceta minophen (Percocet) 5-325 MG tabletIndicatio ns:Chronic bilateral low back pain without sciatica,Chroni c pain syndrome,Chroni c foot pain, unspecified laterality Take 1 tablet by mouth every 12 (twelve) hours if needed for severe pain for up to 28 days. 56 tablet 09/17/19 25 025 Discontinued(R eorder (will not trigger notification to Pharmacy)) Active Problems Problem Noted Date Diagnosed Date Dizziness 11/13/2024 Umbilical hernia without obstruction and without gangrene 11/13/2024 Assessment & Plan (11/13/2024 10:28 AM EDT): - Asymptomatic and mild. Will monitor at this time. Long-term current use of opiate analgesic 2024 Chronic headache 07/21/2024 Assessment & Plan (11/13/2024 10:06 AM EDT): - multifactorial (JOSHUA, sinus disease, chronic pain syndrome) - Evaluated by neurologist. Started on Cymbalta for migraines. - optimize treatment for other chronic disease - work on smoking cessation - improve sleep - consider judicious use of THC / CBD - refer to neurology Assessment & Plan (07/21/2024 5:34 PM EST): [...] DME, which was advised by patient's [facility] administrator or coordinator - will write a script as requested, [employer] Men's [employer]oes, Size 8 Plantar [...] MRI. Mixed dyslipidemia 04/19/2023 Assessment & Plan (11/13/2024 9:04 AM EDT): Lipid Profile: 07/06/22 TC 350; HDL 46; TG 991; LDL could not calculate 05/03/23 total cholesterol 219; triglyceride 232; LDL 133; HDL 40 Current medication: Atorvastatin 20 mg at bedtime, improve adherence Continue working on lifestyle modifications Assessment & Plan (07/21/2024 5:37 PM EST): [...] -Patient has been evaluated by PT, chiropracter, paint line operator, landscape gardener, orthopedist, neurologist, and neurosurgeon -Patient was tapering down opioid analgesic, and taking almost one tablet per day. However, the pain has worsened and now back to bid. -Received SIJ injection on 01/23/22 and LESI on 04/21/22 by pain management providers in [facility] -Patient was re-evaluated again by [facility] provider back specialist in May and Jun [...] Patient is interested in being referred to [facility] in [facility]; will look into specialists. Assessment & Plan (11/12/2023 12:43 PM EDT): -Patient has been evaluated by PT, chiropracter, paint line operator, landscape gardener, orthopedist, neurologist, and neurosurgeon -Patient was tapering down opioid analgesic, and taking almost one tablet per day. However, the pain has worsened and now back to bid. -Received SIJ injection on 01/23/22 and LESI on 04/21/22 by pain management providers in [facility] -Patient was re-evaluated again by [facility] garcia back specialist in May and Jun 2023. Discussed about treatment options, and was recommended to see ankle and foot specialists for calves and hamstrings tightness. -Patient needs a multidisciplinary approach. Will explore more about PMH and past functional level. -Patient started seeing integrated behavioral health service, and was referred to outside behavioral health service provider. - Patient is interested in being referred to [facility] in [facility]; will look into specialists. Assessment & Plan (08/16/2023 9:11 AM EST): -Patient has been evaluated by PT, chiropracter, paint line operator, landscape gardener, orthopedist, neurologist, and neurosurgeon -Patient was tapering down opioid analgesic, and taking almost one tablet per day. However, the pain has worsened and now back to bid. -Received SIJ injection on 01/23/22 and LESI on 04/21/22 by pain management providers in [facility] -Patient was re-evaluated again by [facility] provider back specialist in May and Jun [...] -Patient has been evaluated by PT, chiropracter, paint line operator, landscape gardener, orthopedist, neurologist, and neurosurgeon -Patient was tapering down opioid analgesic, and taking almost one tablet per day. Recently pain is worsening, likely due to weather, per pt. -Received SIJ injection on 01/23/22 and LESI on 04/21/22 by pain management providers in [facility] -Will schedule in-person appt to review the goal of pain management and HEMATOLOGIST ONCOLOGIST agreement -Pt has not been keeping appt with specialists, completing lab as requested. Assessment & Plan (07/06/2022 5:18 AM EST): -Patient has been evaluated by PT, chiropracter, paint line operator, landscape gardener, orthopedist, neurologist, and neurosurgeon -Patient was tapering down opioid analgesic, and taking almost one tablet per day. Recently pain is worsening, likely due to weather, per pt. -Received SIJ injection on 01/23/22 and LESI on 04/21/22 by pain management providers in [facility] -Will schedule in-person appt to review the goal of pain management and HEMATOLOGIST ONCOLOGIST agreement -Pt has not been keeping appt with specialists, completing lab as requested. Tobacco use 07/06/2022 Assessment & Plan (11/13/2024 9:04 AM EDT): - Smoking cessation is encouraged in order to help with his high blood pressure. Assessment & Plan (07/17/2024 1:56 PM EST): [...] cessation Primary hypertension 07/06/2022 Assessment & Plan (11/13/2024 9:04 AM EDT): Goal BP < 140/90 per JNC-8, < 130/80 per ACC/AHA (Tx threshold 140/90) -BP not at goal -continue lisinopril 5 mg daily, improve adherence -discussed about the importance for Tx for JOSHUA -Work on lifestyle modification Assessment & Plan (07/21/2024 5:34 PM EST): [...] clinic for JOSHUA tx Chronic sinusitis 02/17/2018 Assessment & Plan (11/13/2024 10:07 AM EDT): - Referred to ENT 11/13/2024 Hypertriglyceridemia 08/18/2016 Assessment & Plan (11/11/2023 1:00 [...] Recurrent major depression 05/21/2015 Assessment & Plan (11/13/2024 9:04 AM EDT): Hx psychiatric hospitalization for MDD; he was prescribed olanzapine, but self-discontinued. Question of Arnold II per discharge summary - recently seen by clinician and has follow-up appointment tomorrow, patient would like to try anti-depressants - started escitroplam 5 mg daily and hydroxzine 25 mg Q8H prn in October 2023, improve adherence Assessment & Plan (08/14/2024 10:14 AM EST): [...] follow-up with clinician to get additional support. [facility] information provided and crisis number. Provided education to patient regarding importance of engaging in services and seeking out for help. Assessment & Plan (07/21/2024 5:38 PM EST): Hx psychiatric hospitalization for MDD; he was prescribed olanzapine, but self-discontinued. Question of Arnold II per discharge summary - recently seen by clinician and has follow-up appointment tomorrow, patient would like to try anti-depressants - started escitroplam 5 mg daily and hydroxzine 25 mg Q8H prn in October 2023, improve adherence Assessment & Plan (11/11/2023 12:59 PM EDT): Hx psychiatric hospitalization for MDD; he was prescribed olanzapine, but self-discontinued. Question of Arnold II per discharge summary - recently seen by clinician and has follow-up appointment tomorrow, patient would like to try anti-depressants - start escitroplam 5 mg daily and hydroxzine 25 mg Q8H prn Assessment & Plan (07/07/2022 11:22 AM EST): Hx psychiatric hospitalization for MDD; he was prescribed olanzapine, but self-discontinued. Question of Arnold II per discharge summary [facility]er to [facility] Continuous opioid dependence 10/09/2014 Assessment & Plan (07/21/2024 5:38 PM EST): -Judicious use of opioid analgesic -Narcan has been prescribed -HEMATOLOGIST ONCOLOGIST agreement is up to date -pt was tapering down Percocet by himself, taking q24h in September 2020, then down to q18h, but, increased to q12h again in Jun 2022 Assessment & Plan (11/12/2023 12:47 PM EDT): -Judicious use of opioid analgesic -Narcan has been prescribed -HEMATOLOGIST ONCOLOGIST agreement is up to date -pt was tapering down Percocet by himself, taking q24h in September 2020, then down to q18h, but, increased to q12h again in Jun 2022 Assessment & Plan (04/19/2023 6:09 AM EDT): -Judicious use of opioid analgesic -Narcan has been prescribed -HEMATOLOGIST ONCOLOGIST agreement is up to date -pt was tapering down Percocet by himself, taking q24h in September 2020, then down to q18h, but, increased to q12h again in Jun 2022 Assessment & Plan (07/07/2022 11:27 AM EST): -Judicious use of opioid analgesic -Narcan has been prescribed -HEMATOLOGIST ONCOLOGIST agreement is up to date -pt was [...] PM EST): -Patient is previously followed by paint line operator, landscape gardener, orthopedist and neurologist -Patient had been tapering [...] PM EDT): -Patient is previously followed by paint line operator, landscape gardener, orthopedist and neurologist -Patient had been tapering [...] AM EST): -Patient is previously followed by paint line operator, landscape gardener, orthopedist and neurologist -Patient had been tapering [...] another neurosurgeon was the same -seen by [facility] provider, most recently in Jun 2023. Conservative management at this time Assessment & Plan (04/12/2023 4:44 PM EDT): Patient requested another referral -Patient is previously followed by paint line operator, landscape gardener, orthopedist and neurologist -Patient had been tapering [...] AM EST): -Patient is previously followed by paint line operator, landscape gardener, orthopedist and neurologist -Patient had been tapering [...] (obstructive sleep apnea) 01/18/2012 Assessment & Plan (11/13/2024 9:03 AM EDT): Refer to Sleep Splitting Machine Operator -Dx with severe sleep apnea -pt has tried CPAP but was unable to tolerate and return the machine -consider ENT referral again Assessment & Plan (11/12/2023 12:41 PM EDT): Refer to Sleep Splitting Machine Operator -Dx with severe sleep apnea -pt has tried CPAP but was unable to tolerate and return the machine -consider ENT referral again Assessment & Plan (08/16/2023 9:12 AM EST): Refer to Sleep Splitting Machine Operator -Dx with severe sleep apnea -pt has tried CPAP but was unable to tolerate and return the machine -consider ENT referral -Obtain more history about the cause of anisocoria and ?precoucious puberty Assessment & Plan (04/12/2023 4:38 PM EDT): Refer to Sleep Splitting Machine Operator -Dx with severe sleep apnea -pt has tried CPAP but was unable to tolerate and return the machine -consider ENT referral Assessment & Plan (07/07/2022 11:19 AM EST): Pt returned CPAP machine, and is now having a difficulty sleeping, breathing, and BP is elevated Refer to sleep medicine clinic Resolved Problems Problem Noted Date Diagnosed Date Resolved Date Intermittent claudication 12/25/2009 Encounters Date Type Department Care Team Description 11/13/2024 9:30 AM EDT Office Visit [facility] [address] [place] [phone] Araceli De La Rosa MD Primary hypertension (Primary Dx); JOSHUA (obstructive sleep apnea); Chronic intractable headache, unspecified headache type; Tobacco use; Recurrent major depressive disorder, remission status unspecified (CMS/HCC); Mixed dyslipidemia; Chronic sinusitis, unspecified location; Dizziness; Umbilical hernia without obstruction and without gangrene 11/13/2024 Travel 10/24/[address] [address] Araceli De La Rosa MD chart prep 10/19/2024 1:30 PM EDT Clinical Support [facility] [address] [place] [address] RN Chronic pain syndrome (Primary Dx); skilled nursing (current) use of opiate analgesic 10/19/2024 Telephone [facility] [address] [place] [address] RN 10/19/2024 Telephone [facility] [address] [place] [address], silk worker 10/19/2024 Travel 10/18/2024 Telephone [facility] [address] [place] [address], ILIA 10/18/2024 Travel 10/18/2024 Refill [facility] [address] [place] [address] Araceli De La Rosa MD Chronic bilateral low back pain without sciatica; Chronic pain syndrome; Chronic foot pain, unspecified laterality; Insomnia, unspecified type 09/15/2024 Refill [facility] [address] [place] [address] RN Chronic bilateral low back pain without sciatica (Primary Dx); Chronic pain syndrome; Chronic foot pain, unspecified laterality 09/15/2024 Telephone [facility] [address] [place] [address] Araceli De La Rosa MD Med Refill 09/15/2024 Refill [facility] [address] [place] [phone] Araceli De La Rosa MD Insomnia, unspecified type 09/12/2024 Orders Only [facility] [address] [place] [phone] Araceli De La Rosa MD Chronic bilateral low back pain without sciatica (Primary Dx); Chronic pain of both knees; Plantar fasciitis; Chronic foot pain, unspecified laterality; Degeneration of cervical intervertebral disc 09/12/2024 Telephone [facility] [address] [place] [phone] Araceli De La Rosa MD Referral 09/10/2024 Travel 08/16/2024 Telephone [facility] [address] [place] [address], ILIA from Last 3 Months Immunizations Name Administration [...] (159 lb) 11/13/2024 9:25 AM EDT Height 162.6 cm (5' 4 ) 07/17/2024 10:30 AM EST Body Mass Index 27.29 07/17/2024 10:30 AM EST Plan of Treatment Upcoming Encounters Date Type Department Care Team ([facility] st Contact Info) Description 01/18/2025 10:00 AM EDT Clinical Support [facility] [address] [place] [address], RN [address] [place] [address] Health Maintenance Due Date Last Done Comments CT Colonography 1975 Colonoscopy 1975 Colorectal Cancer Screening 1975 FIT DNA/Cologuard 1975 FIT 1975 FOBT 1975 Sigmoidoscopy 1975 Alcohol/Substance Use Screening 1987 Family Planning (PISQ) 1990 Hepatitis C Screening 1993 Hepatitis B Vaccines (1 of 3 - 19+ 3-dose series) 1994 COVID-19 Vaccine ( season) 2024 08/10/2023, 01/02/2021, 12/05/2020 Influenza Vaccine (#1) 2024 , 07/06/2022, 03/30/2019, Additional history exists SDOH Screening 11/10/2024 11/11/2023 Zoster Vaccines (1 of 2) 2025 Depression Screening 08/10/2025 08/10/2024, 08/10/19 Tobacco Screening 11/13/2025 11/13/2024 Lipid Panel 11/13/2029 11/13/2024, 10/18, 11/11/2023, Additional history exists DTaP/Tdap/Td Vaccines (3 - [...] Procedure Name Priority Date/Time Associated Diagnosis Comments ALBUMIN, RANDOM URINE W/CREATININE Routine 11/13/2024 10:32 AM EDT Primary hypertension HEMOGLOBIN A1C Routine 11/13/2024 10:32 AM EDT Primary hypertension Mixed dyslipidemia LIPID PANEL WITH REFLEX TO DIRECT LDL Routine 11/13/2024 10:32 AM EDT Mixed dyslipidemia COMPREHENSIVE METABOLIC PANEL Routine 11/13/2024 10:32 AM EDT Primary hypertension Mixed dyslipidemia CBC WITH AUTO DIFFERENTIAL Routine 11/13/2024 10:32 AM EDT Excessive sweating POCT ANDREZ-14 URINE DRUG SCREEN Routine 10/19/2024 1:50 PM EDT Chronic pain syndrome terminal block assembler (current) use of opiate analgesic AMB REFERRAL TO NEUROLOGY Routine 09/21/2024 Chronic intractable headache, unspecified headache type ZZZ HISTORICAL HIV AB/AG Routine 05/30/2020 12:27 PM EST from Last 3 Months or Most Recently Relevant to Health Maintenance Results * Albumin, Random Urine W/Creatinine (11/13/2024 10:32 AM EDT) Creatinine, Urine 173.17 mg/dL [facility] Microalbumin Urine 7.0 mg/L [facility] Microalbum Creatinine Ratio Ur 4.0 <30 ug/mg cr [facility] Comment:Albumin/Creatinine R atio Reference Ranges: Normal: < 30 ug/mg creatinine Microalbuminuria: 30 - 300 ug/mg creatinineClinical Albuminuria: > 300 ug/mg creatinine Urine 11/13/2024 10:3 2 AM EDT 11/13/2024 11:03 AM EDT us Araceli De La Rosa MD LAB URINE ORDERABLES Final Resul t [facility] [address] [place] [address] [phone] * (ABNORMAL) CBC auto differential (11/13/2024 10:32 AM EDT) White Blood Count 14.0(H) 4.8 - 10.8 X10*3/uL [facility] Red Blood Count 4.69 4.60 - 5.80 X10*6/uL [facility] Hemoglobin 14.1 14.0 - 18.0 g/dl [facility] Hematocrit 42.7 42.0 - 52.0 % [facility] Mean Corpuscular Volume 91.0 80.0 - 98.0 fL [facility] Mean Corpuscular Hemoglobin 30.1 27.0 - 33.0 pg [facility] Mean Corpuscular HGB Conc 33.0 31.0 - 36.0 g/dl [facility] Red Cell Distribution Width 14.5 11.0 - 16.0 % [facility] Platelet Count 268 160 - 400 X10*3/uL [facility] Mean Platelet Volume 10.3 9.4 - 12.4 fL [facility] Neutrophils Percent Auto 79.3(H) 45 - 73 % [facility] Imm Gran Pct Auto 0.6(H) 0.0 - 0.4 % [facility] Lymphocytes Percent Auto 13.0(L) 20 - 40 % [facility] Monocytes Percent Auto 6.7 2 - 11 % [facility] Eosinophils Percent Auto 0.1 0 - 4 % [facility] Basophils Percent Auto 0.3 0 - 2 % [facility] NRBC Pct Auto 0.0 0.0 - 0.2 /100WBC [facility] Neutrophils Absolute Auto 11.1(H) 2.0 - 8.3 x10*3/uL [facility] Imm Gran Abs Auto 0.08(H) 0.00 - 0.03 X10*3/uL [facility] Lymphocytes Absolute Auto 1.8 1.2 - 4.9 X10*3/uL [facility] Monocytes Absolute Auto 0.9 0.1 - 1.2 X10*3/uL [facility] Eosinophils Absolute Auto 0.0 0.0 - 0.4 X10*3/uL [facility] Basophils Absolute Auto 0.0 0.0 - 0.2 X10*3/uL [facility] NRBC Abs Auto 0.000 0.0 - 0.012 X10*3/uL [facility] Blood Venous blood specimen / Unknown 11/13/2024 10:32 AM EDT 11/13/2024 10:57 AM EDT us Araceli De La Rosa MD LAB BLOOD ORDERABLES Final Resul t [facility] [address] [place] [phone] * Hemoglobin A1c (11/13/2024 10:32 AM EDT) Hemoglobin A1c 5.4 <6.0 % [facility] Comment:Hemoglobin A1C Refer ence Range Adults: 4.8 - 6.0 % Non diabetic: < 6.0 % Goal: < 7.0 %Additional Action Suggested: > 8.0 %Note: Hemoglobin A1c results are invalid for patients with abnormal amounts of HbF. Blood transfusions may impact the HbA1c concentration in the patient sample. Estimated Average Glucose 108 mg/dL [facility] Comment:eAG = Estimated ave rage glucose which is %A1C expressed asaverage glucose, using the formula of the S6S-[id number] Glucose study (ADAG), Diabetes Care, Vol.31,#8,2007 Blood Venous blood specimen / Unknown 11/13/2024 10:32 AM EDT 11/13/2024 10:57 AM EDT Araceli De La Rosa MD LAB BLOOD ORDERABLES Final Resul t [facility] [address] [place] [phone] * POCT ANDREZ-14 Urine Drug Screen (10/19/2024 1:50 PM EDT) THC Positive Oxycodone Screen, Urine Positive Urine Urine specimen obtained by clean catch procedure / Unknown 10/19/2024 1:50 PM EDT Narrative [address] RN - 10/19/2024 1:50 PM EDT Lot# [id number] Exp: 03-07-26 us Araceli De La Rosa MD POINT OF CARE TEST ENTER/EDIT OR DERABLES Final Result * Referral to Neurology (09/21/2024) us Araceli De La Rosa MD OUTPATIENT REFERRAL ORDERABLES F inal Result * HIV AB/AG (05/30/2020 12:27 PM EST) HIV AB/AG Nonreactive Nonreactive [facility] Comment: HIV-1 p24 Ag and/or [...] detection of this assay. ?? The [employer] Pipe Supervisor HIV Ag/Ab Combo assay result and supplemental assay results should be interpreted in conjunction with the patient's clinical presentation, history and other laboratory results. ??If the results are inconsistent with clinical evidence, additional testing is suggested to confirm the result. 05/30/2020 12:2 7 PM EST us Araceli De La Rosa MD HISTORICAL/NON ORDERABLE LABS Fi nal Result [facility] [address] from Last 3 Months or Most Recently Relevant to Health Maintenance [place] [id number] * Guarantor: Gerard Cervantes Account Type Relation to Patient Date of Phone Billing Address Personal/Family Self [address] Care Teams Grain Operator Relationship Specialty Start Date End Date Araceli De La Rosa MD [address] [place] [address] [phone] PCP - General Family Medicine 02/06/14
--- OUTSIDE RECORDS SUMMARY | 2024-11-13 12:22 | XMS_ITS | Encounter Summary ---
Author Organization [employer] [facility] Address [address] [facility] [address] [place] [address] Care Team Providers Care Ship Pilot Name Role Phone Araceli De La Rosa MD Primary Care Provider [phone] Encounter Details Date Type Department Care Team (Late st Contact Info) Description 07/03/2022 Orders Only [facility] [address] [place], [place] [phone] Katie Britt, ILIA Social History Tobacco Use [...] Description 01/18/2025 10:00 AM EDT Clinical Support [facility] [address] [place] [address], IL[place] [address] [place] [address] documented as of this encounter Visit Diagnoses Not on filedocumented in this encounter Care Teams Ship Pilot Relationship Specialty Start Date End Date Araceli De La Rosa MD [address] [place] [address] PCP - General Family Medicine 02/06/14 documented as of this encounter
--- OUTSIDE RECORDS SUMMARY | 2024-11-13 12:22 | XMS_ITS | Encounter Summary ---
Author Organization [employer] Address [address] [place] [address] Care Team Providers Care Motor Coach Supervisor Name Role Phone Araceli De La Rosa MD Primary Care Provider [phone] Reason for Visit * Reason Onset Date Comments Results 08/11/2023 Encounter Details Date Type Department Care Team ([facility] st Contact Info) Description 08/11/2023 Telephone [facility] [address], [place] [phone] Araceli De La Rosa MD [address] [place], [place] [phone] Results Social History Tobacco Use Types Packs/Day [...] t he electric, gas, oil or water [employer] threatened to shut off services in your [...] * Telephone Encounter - Bowen Tse - 08/11/2023 10:22 AM EST TC from pt requesting call back regarding Results. Type of results: Lab Work & MRI Date when done: Lab 05/06, MRI 05/18 Facility: [facility] [place] documented in this encounter Plan of Treatment Upcoming Encounters Date Type Department Care Team (Late st Contact Info) Description 01/18/2025 10:00 AM EDT Clinical Support [facility] [address] [place] [address], RN [address] [place] [address] documented as of this encounter Visit Diagnoses Not on filedocumented in this encounter Additional Health Concerns Assessment Noted Time PHQ-9 Depression Total Score: 7 07/06/20 22 11:15 AM EST documented as of this encounter Care Teams Motor Coach Supervisor Relationship Specialty Start Date End Date Araceli De La Rosa MD [address] [place] [address] PCP - General Family Medicine 02/06/14 documented as of this encounter
[2024-11-13 12:33] LABS: TSH reflex Free T4 1.16 uIU/mL (0.32-4.0)
[2024-11-14 04:19] LABS: LDL Cholesterol Direct 89 mg/dL (<100)
== END 2024-11-13 10:31 | disposition home or self-care (01) ==
LOC: HO.HHCL 10:30
PROVIDERS: Visit Provider Family Medicine
DX: Z13.1 Encounter for screening for diabetes mellitus (principal); E78.2 Mixed hyperlipidemia; R61 Generalized hyperhidrosis; I10 Essential (primary) hypertension
CPT/HCPCS: 36415; 80053; 80061; 82043; 82570; 83036; 83721; 84443; 85025